=== PATIENT | male | born 1945 | race Caucasian/White ===

== ENCOUNTER 2016-04-30 16:49 | Observation (INO) ==
--- NOTE | 2016-04-30 17:45 | Emergency Department Note ---
Disposition Clinical Impression: TIA (transient ischemic attack) Qualifiers: Transient cerebral ischemia type: unspecified Qualified Code(s): G45.9 - Transient cerebral ischemic attack, unspecified Disposition: Admitted As Inpatient Referrals: Rupal Perez DO [Primary Care Provider] - Forms: ED Satisfaction Letter Neuro HPI - General Chief Complaint: ED Neuro Symptoms/Deficit Stated Complaint: "cant talk" can talk now Source: patient, family Limitations: no limitations Nursing Notes Reviewed: Yes Vital Signs Reviewed: Yes - History of Present Illness HPI Narrative: Mr. Silvestre, a 70yo male, presents from home by POV with chief complaint of difficulty speaking. History of TIA x3, intracerebral tumor surgically removed 3 yrs ago, followed by oncologist at the [facility] Patient's event was witnessed by patient's at bedside. Onset 09:00-09:30. She describes the patient stayed in the kitchen, slightly confused, severely mumbling and slurring his words such that they were incomprehensible. This self resolved after 20-25 minutes and patient is now at baseline. Per the patient, he denies confusion, remembers the event, states that he had clear thoughts [place] he wanted to say however he was having difficulty articulating his words. Patient's is very concerned she only was the best for him as the patient is downplaying his symptoms stating, "I'm just fine." At this point, the patient broke down crying. Anticoagulated on ASA 81mg PO Qdaily. PMH: Brain cancer, HTN, COPD, hx recurrent pneumonia. - Related Data Home Medications: Home Medications Medication Instructions Recorded Confirmed Albuterol Sulfate [Proair Hfa] 2 puff IH Q4H PRN 10/19/15 10/19/15 Amitriptyline [Elavil] 100 mg PO HS 10/19/15 10/19/15 Budesonide/Formoterol 160/4.5 2 puff IH BIDR 10/19/15 10/19/15 [Symbicort 160/4.5] Cholecalciferol (D-3) [Vitamin D] 5,000 unit PO DAILY 10/19/15 10/19/15 Fluticasone Propionate Nasal 1 spray NS DAILY 10/19/15 10/19/15 [Flonase] Levocetirizine Dihydrochloride 5 mg PO DAILY 10/19/15 10/19/15 [Xyzal] Losartan Potassium [Cozaar] 50 mg PO DAILY 10/19/15 10/19/15 Metoprolol [Lopressor] 25 mg PO BID 10/19/15 10/19/15 Montelukast [Singulair] 10 mg PO DAILY 10/19/15 10/19/15 NIFEdipine [Nifedipine ER] 30 mg PO DAILY 10/19/15 10/19/15 Simvastatin [Zocor] 40 mg PO HS 10/19/15 10/19/15 Temozolomide [Temodar] 300 mg PO DAILY 10/19/15 10/19/15 Previous Rx's Medication Instructions Recorded GuaiFENesin ER [Mucinex] 600 mg PO BID #12 tbbp.12hr 10/23/15 Ipratropium/Albuterol Neb [Duoneb] 3 ml IH AD #21 inhsol 10/23/15 Levofloxacin [Levaquin] 500 mg PO DAILY #3 tablet 10/23/15 Allergies/Adverse Reactions: Allergies Allergy/AdvReac Type Severity Reaction Status Date / Time atorvastatin [From Lipitor] AdvReac See Verified 10/19/15 16:34 Comments codeine AdvReac Gastrointestinal Verified 10/19/15 16:34 Upset lisinopril AdvReac Cough Verified 10/19/15 16:34 All systems ED: reviewed and negative except as stated. Constitutional: Denies: fever, chills, weakness Eyes: Denies: vision change Cardiovascular: Denies: chest pain, palpitations, dyspnea on exertion, syncope Respiratory: Denies: cough, dyspnea, wheezes Gastrointestinal: Denies: abdominal pain, nausea, vomiting, diarrhea, constipation, hematemesis, melena, hematochezia Genitourinary: Denies: dysuria Integumentary: Denies: rash, abrasion Neurological: Reports: other (aphasia). Denies: headache, weakness, numbness, paresthesias, confusion, abnormal gait Hematological/Lymphatic: Denies: easy bleeding, easy bruising Past Medical History - Past Medical History Medical history: Reports: COPD, CVA, hypertension, other Psychiatric history: Reports: no psych history - Social History Smoking Status: Former smoker Smokeless Tobacco Status: No Alcohol use: Reports: none Drug use: Reports: none Physical Exam General: Patient is alert, oriented, and in no acute distress. HEENT: No facial asymmetry. Head is normocephalic and atraumatic. PERRLA, EOMI. trachea midline. Cardiovascular: Heart regular rate and rhythm without clicks, rubs, gallops, or murmurs. No JVD. PMI nondisplaced. Respiratory: Symmetric chest rise with good respiratory effort. Bilateral breath sounds are clear without wheezing, crackles, or rhonchi. Abdomen: Bowel sounds present normoactive x-4 quadrants. Abdomen is soft, nondistended, and nontender. No organomegaly noted. Musculoskeletal: Muscle strength 5/5 and symmetric bilaterally in upper and lower extremities. DTRs 2/4 and symmetric bilaterally in upper and lower extremities. Negative finger to nose exam, negative [id number]. Neuro: Cranial nerves II through XII without deficit. Sensation light touch intact. Psych: Patient's affect is appropriate for situation. - General Limitations: no limitations General appearance: alert, in no apparent distress Course Course Narrative: Per his , he is at baseline. His speech is clear, coherent, and he is able to appropriately answer questions while carrying on a conversation. There is no facial asymmetry or neurologic deficit. Work patient up for strokelike symptoms however will not call a code stroke this time. Vital Signs Temperature 97.4 F L 04/30/16 16:53 Pulse Rate 77 04/30/16 16:53 Respiratory Rate 16 04/30/16 16:53 Blood Pressure 131/82 04/30/16 16:53 O2 Sat by Pulse Oximetry 98 04/30/16 16:53 Temperature 97.4 F L 04/30/16 16:53 Pulse Rate 73 04/30/16 17:49 Respiratory Rate 18 04/30/16 17:49 Blood Pressure 124/79 04/30/16 17:49 O2 Sat by Pulse Oximetry 95 04/30/16 17:49 Oxygen Delivery Oxygen Delivery Room Air Neuro Symptoms/Deficit - Medical Records Medical records reviewed: Yes I reviewed the patient's medical records. - Lab Data Lab results reviewed: Yes I reviewed the patient's lab results. Result diagrams: 04/30/16 17:45 04/30/16 17:45 Lab Results 04/30/16 04/30/16 04/30/16 Range/Units 16:58 17:45 17:45 WBC 5.4 (4.3-11.1) K/mcL RBC 4.08 L (4.19-5.50) M/mcL Hgb 12.3 L (12.9-16.9) g/dL Hct 37.0 L (37.5-50.1) % MCV 90.7 (83.0-100.0) fL MCH 30.1 (28.0-33.3) pg MCHC 33.2 (31.6-35.5) g/dL RDW 14.1 (11.5-14.5) % Plt Count 217 (140-400) K/mcL MPV 8.2 L (9.4-12.4) fL Immature Gran % 0.4 (0-4) % Seg Neutrophils % 71.5 % Lymphocytes % 16.8 % Monocytes % 7.4 % Eosinophils % 3.3 % Basophils % 0.6 % Neutrophils # 3.9 (1.6-8.9) K/mcL Lymphocytes # 0.9 (0.6-4.6) K/mcL Monocytes # 0.4 (0.0-1.3) K/mcL Eosinophils # 0.2 (0.0-0.6) K/mcL Basophils # 0.0 (0.0-0.2) K/mcL Sodium 137 (136-145) mEq/L Potassium 4.1 (3.5-4.5) mEq/L Chloride 104 (98-109) mEq/L Carbon Dioxide 24 (19-29) mEq/L BUN 11 (8-26) mg/dL Creatinine 1.12 (0.72-1.25) mg/dL Est GFR ( Amer) > 60 (> 60) Est GFR (Non-Af Amer) > 60 (> 60) BUN/Creatinine Ratio 10 (6-26) Glucose 91 (70-99) mg/dL POC Glucose 118 H (58-89) Calculated Osmolality 283 (280-300) Calcium 9.0 (8.6-10.8) mg/dL Troponin I (0-0.03) ng/mL 04/30/16 Range/Units 17:45 WBC (4.3-11.1) K/mcL RBC (4.19-5.50) M/mcL Hgb (12.9-16.9) g/dL Hct (37.5-50.1) % MCV (83.0-100.0) fL MCH (28.0-33.3) pg MCHC (31.6-35.5) g/dL RDW (11.5-14.5) % Plt Count (140-400) K/mcL MPV (9.4-12.4) fL Immature Gran % (0-4) % Seg Neutrophils % % Lymphocytes % % Monocytes % % Eosinophils % % Basophils % % Neutrophils # (1.6-8.9) K/mcL Lymphocytes # (0.6-4.6) K/mcL Monocytes # (0.0-1.3) K/mcL Eosinophils # (0.0-0.6) K/mcL Basophils # (0.0-0.2) K/mcL Sodium (136-145) mEq/L Potassium (3.5-4.5) mEq/L Chloride (98-109) mEq/L Carbon Dioxide (19-29) mEq/L BUN (8-26) mg/dL Creatinine (0.72-1.25) mg/dL Est GFR ( Amer) (> 60) Est GFR (Non-Af Amer) (> 60) BUN/Creatinine Ratio (6-26) Glucose (70-99) mg/dL POC Glucose (58-89) Calculated Osmolality (280-300) Calcium (8.6-10.8) mg/dL Troponin I 0.01 (0-0.03) ng/mL - EKG Data EKG attestation: Yes I reviewed and interpreted this EKG. EKG results narrative: EKG dated 04/30/16 at 17:46 shows sinus rhythm with a rate of 73. Left axis. Normal intervals. Nonspecific ST-T changes. Compared to previous dated 2015 at 14:48 showing sinus rhythm; no acute ischemic changes comparison. NIH Stroke Scale - Level of Consciousness LOC: Alert - LOC Questions LOC Questions: Answers both correctly - LOC Commands LOC Commands: Performs both correctly - Best Gaze Best Gaze: Normal - Visual Visual: No visual loss - Facial Palsy Facial Palsy: Normal - Motor Arms Motor Arm-Left: No drift for 10 seconds Motor Arm-Right: No drift for 10 seconds - Motor Legs Motor Leg-Left: No drift for 5 seconds Motor Leg-Right: No drift for 5 seconds - Limb Ataxia Limb Ataxia: Absent of affected limb too weak to perform exam - Sensory Sensory: Normal - Best Language Best Language: No aphasia - Dysarthria Dysarthria: Normal - Extinction and Inattention Extinction and Inattention: Normal - NIHSS Total Score NIHSS Total Score: 0 TPA Checklist - LKW: 3-4.5 hrs Add. Contraindications Patient/family understanding: The patient/family members have been counseled and understood the risk, benefit , and alternatives of treatment. Attestation Statement - Attestation Attestation: I examined this patient and my medical decision-making was reviewed with the BUYER ASSISTANT/PA/Advanced Practice Nurse/Resident Physician. I agree with the documented findings, disposition and treatment plan as described except to the extent set forth below. Patient to the emergency department with a chief complaint of difficulty talking. Patient states he was eating some chicken and is having trouble finding his words. His states that his face was drooping and he was drooling. She was concerned he was having a stroke because he could not find his words. This episode resolved prior to his arrival here. On examination here is awake alert and appropriate. His cranial nerves are intact. He is talking normally per his . His NIH scale was 0. Plan. Stroke workup and observation. The patient and is completely resolved. No stroke alert was called secondary to this.
[2016-04-30 18:13] LABS: Basophils % 0.6 %; Eosinophils % 3.3 %; Hemoglobin 12.3 g/dL (12.9-16.9); Immature Granulocytes % 0.4 % (0-4); Lymphocytes % 16.8 %; Mean Corpuscular HGB Conc 33.2 g/dL (31.6-35.5); Mean Corpuscular Hemoglobin 30.1 pg (28.0-33.3); Mean Corpuscular Volume 90.7 fL (83.0-100.0); Mean Platelet Volume 8.2 fL (9.4-12.4); Monocytes % 7.4 %; Platelet Count 217 K/mcL (140-400); Red Blood Count 4.08 M/mcL (4.19-5.50); Red Cell Distribution Width 14.1 % (11.5-14.5); Segmented Neutrophils % 71.5 %
[2016-04-30 18:14] LABS: Eosinophils # 0.2 K/mcL (0.0-0.6); Lymphocytes # 0.9 K/mcL (0.6-4.6); Monocytes # 0.4 K/mcL (0.0-1.3); Neutrophils # 3.9 K/mcL (1.6-8.9)
[2016-04-30 18:25] LABS: BUN/Creatinine Ratio 10 (6-26); Blood Urea Nitrogen 11 mg/dL (8-26); Carbon Dioxide 24 mEq/L (19-29); Chloride 104 mEq/L (98-109); Glucose 91 mg/dL (70-99); Osmolality,Calculated 283 (280-300); Potassium 4.1 mEq/L (3.5-4.5); Sodium 137 mEq/L (136-145); eGFR For African Americans > 60 (> 60); eGFR For Non-African Americans > 60 (> 60)
[2016-04-30 18:43] LABS: INR 1.1; Prothrombin Time 11.9 Seconds (9.4-12.1)
[2016-04-30 18:46] LABS: Activated Partial Thrombo Time 30.6 Seconds (26.0-36.0)
[2016-04-30] MEDS ORDERED: Naloxone 0.4 MG/ML INJ IVP PRN (20:20)
[2016-04-30] MEDS ORDERED: Ondansetron 4 MG/2 ML VIAL IVP PRN (20:25)
[2016-04-30] MEDS ORDERED: Acetaminophen 325 MG TABLET PO PRN (20:25)
--- NOTE | 2016-04-30 20:43 | Internal Med History&Physical ---
Date of Encounter: 04/30/16 Time of Encounter: 19:40 Assessment and Plan (1) TIA (transient ischemic attack) Current visit: Yes Status: Resolved 1. Symptoms resolved upon presentation. 2. Initiate stroke work-up. 3. Will check MRI brain, ECHO, carotid Dopplers. 4. Neurochecks per protocol. 5. PT/OT/Speech consults. 6. Consult Neurology -- notified. 7. Continue Zocor and daily aspirin. Qualifiers: Transient cerebral ischemia type: other Qualified Code(s): G45.8 - Other transient cerebral ischemic attacks and related syndromes (2) HTN (hypertension) Current visit: No Status: Chronic 1. Monitor BP. 2. Continue Lopressor. 3. Adjust medications as appropriate. Qualifiers: Hypertension type: essential hypertension Qualified Code(s): I10 - Essential (primary) hypertension (3) History of brain cancer Current visit: No Status: Chronic 1. Outpatient follow up with [facility] neurology. 2. Discussed with family and patient. I recommend they obtain medical records after discharge and forward them to Patient's primary neurologist at [facility]. (4) DVT prophylaxis Current visit: No Status: Acute 1. Heparin SQ. Internal Medicine - H&P: HPI Chief complaint: facial droop and difficulty speakin Admitted From: Emergency Dept Plans for Post Hospital Care: Home History of present illness: Mr. Silvestre is a 70 year old male [facility] of left-sided facial droop and expressive aphasia. Symptoms started earlier this afternoon and he was reluctant/resistant to come to the ER. His family was able to finally coerce him to come to the ER. Upon arrival to the ER , patient had initial workup for stroke which was negative. Furthermore, his symptoms completely resolved upon arrival to the ER. Nonetheless, given his symptom presentation, he was admitted to hospitalist service. Upon my assessment of the patient to the ER, patient is talking easily and without difficulty. He exhibits no facial droop and I appreciate no focal deficits. His and family are present and confirm that he is back to baseline now. According to patient and family, he reportedly has had 3 TIAs in the last few years. However, according to his , his TIA's all presented after his brain surgery 3 years ago. He underwent neurosurgery for a brain tumor and he follows with neurology at [facility]. Since his brain surgery, he has also undergone chemotherapy and radiation to his brain. Cardiovascular and neurovascular risk factors include hypertension, hyperlipidemia, and known coronary disease. He is not diabetic and he does not smoke. He does have some COPD, which he attributes to occupational exposure through the and [employer] as well. Past Med Surg Social Fam HX - Past Medical History Attestation: Yes The following information was validated with the patient. Source: patient, old records reviewed, obtained from family Medical history: COPD, CVA, hypertension, other (brain cancer) Psychiatric history: no psych history - Past Surgical History Surgical History: angioplasty/stent, other (neurosurgery) - Social History Smoking Status: Former smoker Smokeless Tobacco Status: No Alcohol use: none Drug use: none Occupational status: disabled () Current living situation: Home, With Family Activity Level: Independent ambulation Recent Out of Country Travel Within the Last 8 Weeks: No - Family History Brother Living Status: Hx Family Cardiac Disorders: Yes ([place]) Hx Family Neurologic Disorders: No Internal Medicine - H&P: Meds Albuterol Sulfate [Proair Hfa] 2 puff IH Q4H PRN 10/19/15 [History] Amitriptyline [Elavil] 100 mg PO HS 10/19/15 [History] Budesonide/Formoterol 160/4.5 [Symbicort 160/4.5] 2 puff IH BIDR 10/19/15 [ History] Cholecalciferol (D-3) [Vitamin D] 5,000 unit PO DAILY 10/19/15 [History] Fluticasone Propionate Nasal [Flonase] 1 spray NS DAILY 10/19/15 [History] Levocetirizine Dihydrochloride [Xyzal] 5 mg PO DAILY 10/19/15 [History] Losartan Potassium [Cozaar] 50 mg PO DAILY 10/19/15 [History] Metoprolol [Lopressor] 25 mg PO BID 10/19/15 [History] Montelukast [Singulair] 10 mg PO DAILY 10/19/15 [History] NIFEdipine [Nifedipine ER] 30 mg PO DAILY 10/19/15 [History] Simvastatin [Zocor] 40 mg PO HS 10/19/15 [History] Temozolomide [Temodar] 300 mg PO DAILY 10/19/15 [History] Docusate [Colace] 100 mg PO DAILY PRN 04/30/16 [History] Allergies atorvastatin [From Lipitor] Adverse Reaction (Verified 10/19/15 16:34) See Comments patient states it makes him feel bad codeine Adverse Reaction (Verified 10/19/15 16:34) Gastrointestinal Upset lisinopril Adverse Reaction (Verified 10/19/15 16:34) Cough - Constitutional Constitutional: no chills, no fever(s) - EENT Eyes: no blurry vision, no change in vision, no diplopia, no loss of vision Ears: no ear pain, no tinnitus Nose, mouth and throat: no nasal congestion, no sinus pain, no sinus pressure, no sore throat - Cardiovascular Cardiovascular ROS IM: no chest pain, no dyspnea, no dyspnea on exertion, no edema, no irregular heart rhythm, no lightheadedness, no palpitations, no paroxysmal nocturnal dyspnea - Respiratory Respiratory: cough (chronic), wheezing (chronic), no dyspnea, no hemoptysis, no dyspnea on exertion, no chest congestion, no excessive phlegm production, no pain with cough - Gastrointestinal Gastrointestinal: no abdominal pain, no diarrhea, no hematemesis, no hematochezia, no melena, no nausea, no vomiting - Genitourinary Genitourinary ROS male: no dysuria, no flank pain, no hematuria - Musculoskeletal Musculoskeletal ROS IM: no back pain, no joint swelling - Integumentary Integumentary IM: no rash, no unusual bruising, no jaundice - Neurological Neurological ROS: abnormal speech (expressive aphasia -- resolved), focal weakness (Left facial droop -- resolved), no dizziness, no frequent falls - Psychiatric Psychiatric: no anxiety, no depression - Endocrine Endocrine IM: no cold intolerance, no heat intolerance - Hematologic/Lymphatic Hematologic/Lymphatic: no easy bruising, no lymphadenopathy - Allergic/Immunologic Allergic/Immunologic: wheezing, no GI upset with certain foods - Constitutional Vitals: Temp Pulse Resp BP Pulse Ox 97.4 F L 74 18 125/77 95 04/30/16 16:53 04/30/16 19:30 04/30/16 20:01 04/30/16 20:01 04/30/16 19:30 General appearance: Present: cooperative, A&O X 3, pleasant, no acute distress, answers questions appropriately - Head Head exam: Present: atraumatic, normal inspection - Expanded Head Exam Head exam expanded: Absent: abrasion, contusion, general tenderness - Eye Eye exam: Present: EOMI, normal appearance, PERRL. Absent: scleral icterus Pupils: Present: normal accommodation - ENT ENT exam: Present: mucous membranes moist, normal exam, normal oropharynx - Neck Neck exam general surgery: Present: full ROM, normal inspection, supple. Absent : lymphadenopathy, nuchal rigidity, thyromegaly - Respiratory Respiratory exam: Present: CTAB (other than rare scattered wheezes), wheezes. Absent: accessory muscle use, chest wall tenderness, rales, respiratory distress , rhonchi - Cardiovascular Cardiovascular exam: Present: RRR, +S1, +S2. Absent: diastolic murmur, irregular rhythm, JVD, systolic murmur - GI/Abdominal GI/Abdominal exam: Present: normal bowel sounds, soft. Absent: guarding, hepatomegaly, mass, rebound, splenomegaly, tenderness - Extremities Exam Extremities exam: Present: full ROM, normal capillary refill, radial pulses palpable and symetrical. Absent: calf tenderness, joint swelling, tenderness - Back Exam Back exam: Present: normal inspection. Absent: CVA tenderness (L), CVA tenderness (R) - Neurological Exam Neurological exam: Present: CN II-XII intact, no focal deficits, strengths equal and symetr throughout. Absent: motor sensory deficit Additional comments: speech clear, comprehensible, normal; no facial droop appreciated - Psychiatric Psychiatric exam: Present: normal affect, normal mood - Skin Skin exam: Present: dry, warm. Absent: rash Internal Med - H&P Results - Labs CBC & Chem 7: 04/30/16 17:45 04/30/16 17:45 - EKG Data -: EKG Interpreted by Myself EKG shows normal: sinus rhythm - EKG Data Prior EKG available for review: yes When compared to previous EKG: there is no significant change EKG comments: 04/30/16 20:51 Sinus rhythm; questionable q-waves inferiorly suggesting possible old Inferior [place] -- unchanged - Diagnostic Studies Chest x-ray Status: image reviewed by me (negative; lungs clear)
[2016-04-30] MEDS: *HR* Heparin 5,000 UNIT/ML VIAL SQ SCH (22:18)
[2016-04-30] MEDS: Budesonide/Formoterol 160/4.5 MDI IH SCH (23:17)
[2016-05-01 04:02] LABS: Basophils % 0.6 %; Eosinophils # 0.2 K/mcL (0.0-0.6); Eosinophils % 3.5 %; Hematocrit 35.5 % (37.5-50.1); Immature Granulocytes % 0.2 % (0-4); Lymphocytes # 1.1 K/mcL (0.6-4.6); Lymphocytes % 21.2 %; Mean Corpuscular HGB Conc 33.8 g/dL (31.6-35.5); Mean Corpuscular Hemoglobin 30.7 pg (28.0-33.3); Mean Corpuscular Volume 90.8 fL (83.0-100.0); Mean Platelet Volume 8.2 fL (9.4-12.4); Monocytes # 0.4 K/mcL (0.0-1.3); Monocytes % 8.3 %; Neutrophils # 3.4 K/mcL (1.6-8.9); Platelet Count 191 K/mcL (140-400); Red Blood Count 3.91 M/mcL (4.19-5.50); Red Cell Distribution Width 13.9 % (11.5-14.5); Segmented Neutrophils % 66.2 %
[2016-05-01 04:39] LABS: Alanine Aminotransferase 14 Units/L (0-55); Albumin 3.2 g/dL (3.5-5.0); Albumin/Globulin Ratio 1.1 (1.1-2.2); Alkaline Phosphatase 62 Units/L (38-126); Aspartate Amino Transferase 12 Units/L (5-34); BUN/Creatinine Ratio 15 (6-26); Bilirubin,Total 0.5 mg/dL (0.2-1.2); Blood Urea Nitrogen 13 mg/dL (8-26); Carbon Dioxide 24 mEq/L (19-29); Chloride 105 mEq/L (98-109); Cholesterol 135 mg/dL (< 200); Glucose 104 mg/dL (70-99); HDL Cholesterol 27 mg/dL (40-59); LDL Cholesterol,Calculated 84 mg/dL (0-99); Osmolality,Calculated 282 (280-300); Potassium 4.1 mEq/L (3.5-4.5); Sodium 136 mEq/L (136-145); Total Protein 6.2 g/dL (6.0-8.3); Triglycerides 120 mg/dL (< 150); eGFR For African Americans > 60 (> 60); eGFR For Non-African Americans > 60 (> 60)
[2016-05-01] MEDS: *HR* Heparin 5,000 UNIT/ML VIAL SQ SCH ×2 (06:09→17:40)
[2016-05-01] MEDS: Budesonide/Formoterol 160/4.5 MDI IH SCH ×2 (07:52→20:28)
--- NOTE | 2016-05-01 08:45 | Neurology - Consult Note ---
Date of Encounter: 05/01/16 Time of Encounter: 08:41 Assessment and Plan (1) TIA (transient ischemic attack) Current Visit: Yes Status: Resolved Patient with previous TIAs, history of brain tumor, s/p craniotomy with left frontal encephalomalacia, HTN, DM COPD who developed another episode of TIA symptoms characterized by speech difficulty and confusion. MRI of brain showed no acute infarct but chronic focal encephalomalacia and post surgical changes at the right frontal region. Beside diagnosis of TIA, another major concerns would localization related partial symptomatic seizure related to history of brain tumor and tumor resection. Will complete echo, carotid artery duplex and also EEG. 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 I would start him on Keppra 500mg bid. Obtain routine EEG. He can be followed in neurology clinic if he wishes. Qualifiers: Transient cerebral ischemia type: other Qualified Code(s): G45.8 - Other transient cerebral ischemic attacks and related syndromes History of Present Illness Chief complaint: speech difficulty, confusion HPI: Mr. Silvestre is a 70 year old male with PMH significant for brain tumor, s/p tumor resection 3 year ago, COPD, HTN, DM, COPD history of recurrent TIAs who presented with an episode of speech difficulty and confusion. Lasting about 20 minutes. Patient is interviewed alone and he could not provide detailed history regarding the episode. He says that he has had surgery 3 years ago and has been having headaches to the craniotomy site. Repeat MRI of brain showed post surgical changes at the left frontal region. No evidence of recurrent mass growth. No acute infarct. Patient current denies any significant discomforts. Mental status back to baseline. Past Med Surg Social Fam HX - Past Medical History Medical history: asthma, COPD, CVA, hypertension, other Psychiatric history: no psych history - Past Surgical History Surgical History: angioplasty/stent, other - Social History Smoking Status: Former smoker Smokeless Tobacco Status: No Alcohol use: none Drug use: none - Family History Father Hx Family Cancer: Yes (bone) Brother Living Status: Hx Family Cardiac Disorders: Yes ([place]) Hx Family Neurologic Disorders: No Medications and Allergies Albuterol Sulfate [Proair Hfa] 2 puff IH Q4H PRN 10/19/15 [History] Amitriptyline [Elavil] 100 mg PO HS 10/19/15 [History] Budesonide/Formoterol 160/4.5 [Symbicort 160/4.5] 2 puff IH BIDR 10/19/15 [ History] Cholecalciferol (D-3) [Vitamin D] 5,000 unit PO DAILY 10/19/15 [History] Fluticasone Propionate Nasal [Flonase] 1 spray NS DAILY 10/19/15 [History] Levocetirizine Dihydrochloride [Xyzal] 5 mg PO DAILY 10/19/15 [History] Losartan Potassium [Cozaar] 50 mg PO DAILY 10/19/15 [History] Metoprolol [Lopressor] 25 mg PO BID 10/19/15 [History] Montelukast [Singulair] 10 mg PO DAILY 10/19/15 [History] NIFEdipine [Nifedipine ER] 30 mg PO DAILY 10/19/15 [History] Simvastatin [Zocor] 40 mg PO HS 10/19/15 [History] Temozolomide [Temodar] 300 mg PO DAILY 10/19/15 [History] Docusate [Colace] 100 mg PO DAILY PRN 04/30/16 [History] Allergies atorvastatin [From Lipitor] Adverse Reaction (Verified 10/19/15 16:34) See Comments patient states it makes him feel bad codeine Adverse Reaction (Verified 10/19/15 16:34) Gastrointestinal Upset lisinopril Adverse Reaction (Verified 10/19/15 16:34) Cough All Systems: A 10-system review of systems was performed and is negative for pertinent findings except as documented above in the HPI. Physical Examination - Vital Signs Vital Signs: Initial Vital Signs Temp Pulse Resp BP Pulse Ox 97.4 F L 77 16 131/82 98 04/30/16 16:53 04/30/16 16:53 04/30/16 16:53 04/30/16 16:53 04/30/16 16:53 Results - Laboratory Findings CBC and BMP: 05/01/16 03:39 05/01/16 03:39 Abnormal lab findings: Abnormal lab results RBC 3.91 M/mcL (4.19-5.50) L 05/01/16 03:39 Hgb 12.0 g/dL (12.9-16.9) L 05/01/16 03:39 Hct 35.5 % (37.5-50.1) L 05/01/16 03:39 MPV 8.2 fL (9.4-12.4) L 05/01/16 03:39 Glucose 104 mg/dL (70-99) H 05/01/16 03:39 POC Glucose 102 (58-89) H 05/01/16 07:07 Albumin 3.2 g/dL (3.5-5.0) L 05/01/16 03:39 HDL Cholesterol 27 mg/dL (40-59) L 05/01/16 03:39 Cholesterol/HDL Ratio 5.0 (0-4.9) H 05/01/16 03:39 Consult Discharge Plan - Plan Referrals: Rupal Perez DO [Primary Care Provider] -
[2016-05-01] MEDS: (Levocetirizine Dihydrochloride [Xyzal] 5 MG) PO SCH (09:25)
[2016-05-01] MEDS: TEMOZOLOMIDE PO SCH (09:25)
[2016-05-01] MEDS: Cholecalciferol (D-3) 1,000 UNIT TABLET PO SCH (09:25)
[2016-05-01] MEDS: Aspirin 81 MG TAB.CHEW PO SCH (09:25)
[2016-05-01] MEDS: Fluticasone Propionate Nasal 50 MCG/SPRAY BOTTLE NS SCH (09:26)
--- NOTE | 2016-05-01 09:53 | ECHO - Doppler Report ---
Echo with Saline Contrast Name: Иван Silvestre Date of Study: 05/01/2016 Date: 1945 Ht: 69.0 in Medical Record#: [id number] Age: 70 Wt: 189.0 lb Gender: Male BSA: 2.02 Order #: [id number] Location: [facility] Room #: 3B14 Reading Physician: Can James MD, [facility] Doctor Of Chiropractic: Tawanna Garcia Ordering Physician: Jayme Saba MD Primary Physician: Rupal Perez DO Indications: Transient Ischemic Attack Impressions: Normal left ventricular size and systolic function, LVEF 55-60%. Normal right ventricular size and function. Mild aortic regurgitation. No evidence of pulmonary hypertension. No evidence of intracardiac shunting with agitated saline contrast. There is a possible large atherosclerotic plaque noted in the ascending aorta, although artifact cannot be excluded. Recommend dedicated imaging of the thoracic aorta with CTA to further evaluate. Primary hospitalist has been paged to discuss the abnormal results. Left Ventricular Wall Motion: Rest Echo Findings All wall segments showed normal motion. Findings: Study Quality * Technically adequate exam. ECG Findings * Normal sinus rhythm. Left Ventricle * Normal left ventricular size and systolic function, LVEF 55-60%. * Normal LV wall thickness. * Indeterminate diastolic function. Right Ventricle * Normal right ventricular size and function. Left Atrium * Normal left atrial size. Right Atrium * Normal right atrial size. Interatrial Septum * No evidence of intracardiac shunting with agitated saline contrast. Aorta * Normally sized aortic root. * There is a possible large atherosclerotic plaque noted in the ascending aorta, although artifact cannot be excluded. Recommend dedicated imaging of the thoracic aorta with CTA to further evaluate. Pericardium * There is no pericardial effusion present. IVC * The IVC is not dilated. Aortic Valve * Trileaflet aortic valve. * Mildly sclerotic aortic valve leaflets. * No aortic stenosis. * Mild aortic regurgitation. Mitral Valve * Normal mitral valve structure. * Mild mitral annular calcification * No mitral stenosis. * Trace mitral regurgitation. Tricuspid Valve * Normal tricuspid valve structure. * No tricuspid stenosis. * Trace tricuspid regurgitation. * No evidence of pulmonary hypertension. Pulmonic Valve * Normal pulmonic valve structure. * No pulmonic stenosis. * Trace pulmonic regurgitation. History Hypertension Hypercholesteremia History of CAD/PTCA Contrast: Agitated saline 20 ml. Measurements: BP: 109/ 60 2D Normal Values RVIDd: 3.70 cm IVSd: 1.00 cm 0.6 - 1.0 cm LVIDd: 4.10 cm 3.7 - 5.6 cm LVPWd: .90 cm 0.6 - 1.1 cm LVIDs: 2.10 cm 1.5 - 3.6 cm AO: 2.90 cm < 4.0 cm LA volume: 65 Mitral Valve Peak E:.57 m/sec Peak A:.65 m/sec E/A Ratio:0.9 Tricuspid Valve TV Regurg Peak Grad: 21.00mmHg TV Regurg Peak Chsae: 2.29m/sec Updated by Can James MD, [facility] on 05/01/2016 9:46:35 AM electronically signed on 05/01/2016 9:47:46 AM with status of Final Wall Motion Avery: 1=Normal, 2=Hypokinesis, 3=Akinesis, 4=Dyskinesis, 5=Aneurysmal, 6=Hyperkinetic, X=Not Visualized (Blank)=Missing
--- NOTE | 2016-05-01 10:21 | Internal Med Progress Note ---
Date of Encounter: 05/01/16 Time of Encounter: 10:15 - Assessment and plan (1) TIA (transient ischemic attack) Current Visit: Yes Status: Resolved Assessment and plan: Patient alert and oriented 3. He has very mild slurring of his speech but no tongue deviation or facial asymmetry. No focal neurological weaknesses noted. Chest x-ray unremarkable. Head CT and brain MRI negative for acute processes. Neurology on board who recommend addition of the EEG and possible starting the patient on Keppra and follow up outpatient. Echocardiogram unremarkable with a possible large atherosclerotic plaque in the ascending aorta, CTA pending. ITS Impressions Chest X-Ray 04/30/16 16:56 IMPRESSION: Mild dependent left basilar atelectasis. Otherwise unremarkable chest. D/ / Jerome Hammond MD / Jerome Hammond MD Interpreting Provider: Jerome Hammond MD Head CT 04/30/16 16:56 IMPRESSION: No hemorrhage or mass Periventricular, and frontal parietal white matter disease, left greater than right, with post craniotomy changes on the left. D/ / Walt Alicia MD / Walt Alicia MD Interpreting Provider: Walt Alicia MD Brain MRI 04/30/16 20:29 IMPRESSION: No acute intracranial process, specifically no acute ischemia. 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 Expected post treatment changes. Moderate chronic small vessel ischemic disease. D/ / Chance Brooks MD / Chance Brooks MD Interpreting Provider: Chance Brooks MD Echocardiogram impressions: Normal left ventricular size and systolic function, LVEF 55-60%. Normal record sugar size and function. Mild aortic regurgitation. No evidence of pulmonary hypertension. Evidence of intracardiac shunting with agitated saline contrast. There is a possible large atherosclerotic plaque noted in the ascending aorta, although artifact cannot be excluded. Recommend dedicated imaging of the thoracic aorta with CTA to further evaluate. Primary hospitalist has been notified. Qualifiers: Transient cerebral ischemia type: other Qualified Code(s): G45.8 - Other transient cerebral ischemic attacks and related syndromes (2) Abnormal echocardiogram Current Visit: Yes Status: Acute (3) DVT prophylaxis Current Visit: No Status: Acute Assessment and plan: Subcutaneous heparin (4) COPD (chronic obstructive pulmonary disease) Current Visit: No Status: Chronic Assessment and plan: No acute exacerbation. Patient denies shortness of breath. Qualifiers: COPD type: chronic bronchitis Chronic bronchitis type: unspecified Qualified Code(s): J42 - Unspecified chronic bronchitis (5) HTN (hypertension) Current Visit: No Status: Chronic Assessment and plan: Controlled, we will continue to trend and adjust medications as indicated. Qualifiers: Hypertension type: essential hypertension Qualified Code(s): I10 - Essential (primary) hypertension (6) History of brain cancer Current Visit: No Status: Chronic Assessment and plan: No signs of recurrence on imaging, follow-up outpatient with [facility]. - Subjective Interval history: Patient seen and examined. On examination, patient resting in bed. Patient alert and oriented 3 and denies pain at this time. He states he is tired and he states that he was already tired before he came in as he states he had the flu for about one month. He denies any weakness. - Constitutional Vitals: Temp Pulse Resp BP Pulse Ox 97.6 F 64 16 129/81 93 L 05/01/16 07:08 05/01/16 07:08 05/01/16 07:08 05/01/16 07:08 05/01/16 07:08 General appearance: Present: cooperative, A&O X 3, pleasant, no acute distress, answers questions appropriately - Head Head exam: Present: atraumatic, normocephalic - Eye Eye exam: Present: PERRL, conjuntiva pink, sclera anicteric Pupils: Present: PERRL - Neck Neck exam general surgery: Present: supple, trachea midline. Absent: lymphadenopathy - Respiratory Respiratory exam: Present: CTAB. Absent: accessory muscle use, rales, respiratory distress, rhonchi, wheezes - Cardiovascular Cardiovascular exam: Present: RRR, +S1, +S2. Absent: diastolic murmur, gallop, rubs, systolic murmur - GI/Abdominal GI/Abdominal exam: Present: normal bowel sounds, soft, no peritoneal signs. Absent: distended, tenderness - Extremities Exam Extremities exam: Present: warm, radial pulses palpable and symetrical. Absent : calf tenderness, cyanotic, pedal edema - Neurological Exam Neurological exam: Present: alert, CN II-XII intact, oriented X3, no focal deficits, strengths equal and symetr throughout. Absent: pronater drift, facial droop, speech deficit - Skin Skin exam: Present: dry, intact, normal color, warm Internal Medicine: Result - Labs CBC & Chem 7: 05/01/16 03:39 05/01/16 03:39 Labs: Short CBC 05/01/16 Range/Units 03:39 WBC 5.2 (4.3-11.1) K/mcL Hgb 12.0 L (12.9-16.9) g/dL Hct 35.5 L (37.5-50.1) % Plt Count 191 (140-400) K/mcL Neutrophils # 3.4 (1.6-8.9) K/mcL BMP 05/01/16 03:39 Sodium 136 Potassium 4.1 Chloride 105 Carbon Dioxide 24 BUN 13 Creatinine 0.89 Glucose 104 H Calcium 9.0 Liver Function 05/01/16 Range/Units 03:39 Total Bilirubin 0.5 (0.2-1.2) mg/dL AST 12 (5-34) Units/L ALT 14 (0-55) Units/L Alkaline Phosphatase 62 (38-126) Units/L Albumin 3.2 L (3.5-5.0) g/dL - ABG Interpretation ABG results: PT/INR, D-dimer PT 11.9 Seconds (9.4-12.1) 04/30/16 18:30 - Impressions Impressions Brain MRI 04/30/16 20:29 IMPRESSION: No acute intracranial process, specifically no acute ischemia. 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 Expected post treatment changes. Moderate chronic small vessel ischemic disease. D/ / Chance Brooks MD / Chance Brooks MD Interpreting Provider: Chance Brooks MD Consult Discharge Plan - Plan Referrals: Rupal Perez DO [Primary Care Provider] -
--- NOTE | 2016-05-01 16:05 | EEG/EMG/Oth Biometrics Report ---
EEG Procedure Report Date of procedure: 05/01/16 Procedure Note: Medications: no anticonvulsants listed. This EEG was acquired with standard international 10-20 electrode placement system with EKG recording. The background EEG activity was characterized by presence of posterior dominant alpha rhythm with best frequency up to 9Hz. The background activity was reactive to eye openings. Sleep stages were characterized by presence of drop off of alpha rhythm, vertex wave, K-complexes and sleep spindles. There are no electrographic seizures identified during the study. However, there are intermittent sharp slow waves noted at the left frontal temporal region as well as theta, delta slowing at the same region. Photic stimulation produced no significant abnormality. HV not performed. Impression: Abnormal EEG due to intermittent left frontotemporal slowing and sharp/slow waves. Clinical correlation: This EEG is consistent with focal neuronal dysfunction at the left [id number] region. This pattern can be seen in patients with focal structure abnormalities or less likely as an inter-ictal expression of a partial seizure disorder. Clinical correlation advised.
--- NOTE | 2016-05-01 16:16 | Electrocardiograph Report ---
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
[2016-05-01] MEDS: levETIRAcetam 250 MG TABLET PO SCH (17:40)
--- NOTE | 2016-05-01 18:19 | Carotid Imaging Report ---
Carotid Duplex Patient Name:Иван Silvestre Order Number:[id number] Procedure Date:05/01/2016 Date:8Age:70 yrs Gender:Male Location:[facility] Room #: 3B14 [facility] Laboratory Technician:Tawanna Garcia Referring MD:Jayme Saba MD vaccinator:Rupal Perez DO Reading MD:Chris Underwood MD Risk Factors Yes/No Hx of TIA Yes Hypertension Yes Hypercholesterolemia Yes Impressions: The right internal carotid artery has a 40-59% stenosis. The left carotid artery is normal throughout. Recommendations: Risk factor reduction. Follow-up carotid duplex in 1 year. After imaging the patient returned to their room. Findings Carotid Duplex: Right: The right proximal common carotid artery has a PSV of 76 cm/s and a EDV of 15 cm/s. The right mid common carotid artery has a PSV of 86 cm/s and a EDV of 21 cm/s. The right distal common carotid artery has a PSV of 63 cm/s and a EDV of 10 cm/s. There is nonstenotic plaque in the right bifurcation with a PSV of 99 cm/s and a EDV of 19 cm/s. There is smooth heterogeneous plaque. There is 40-59% stenosis in the right proximal internal carotid artery with a PSV of 125 cm/s and a EDV of 36 cm/s. There is smooth heterogeneous plaque. The right mid internal carotid artery has a PSV of 81 cm/s and a EDV of 30 cm/s. The right distal internal carotid artery has a PSV of 81 cm/s and a EDV of 30 cm/s. There is nonstenotic plaque in the right eca with a PSV of 138 cm/s and a EDV of 18 cm/s. There is smooth heterogeneous plaque. The right vertebral artery has a PSV of 21 cm/s and a EDV of 7 cm/s. Left: The left proximal common carotid artery has a PSV of 106 cm/s and a EDV of 22 cm/s. The left mid common carotid artery has a PSV of 78 cm/s and a EDV of 15 cm/s. The left distal common carotid artery has a PSV of 58 cm/s and a EDV of 14 cm/s. The left bifurcation has a PSV of 70 cm/s and a EDV of 16 cm/s. The left proximal internal carotid artery has a PSV of 81 cm/s and a EDV of 27 cm/s. The left mid internal carotid artery has a PSV of 79 cm/s and a EDV of 20 cm/s. The left distal internal carotid artery has a PSV of 74 cm/s and a EDV of 23 cm/s. The left eca has a PSV of 92 cm/s and a EDV of 18 cm/s. The left vertebral artery has a PSV of 61 cm/s and a EDV of 18 cm/s. Carotid Results Right PSV EDV Assessment Proximal CCA 76 15 Mid CCA 86 21 Distal CCA 63 10 Bifurcation 99 19 Proximal ICA 125 36 Mid ICA 81 30 Distal ICA 81 30 ECA 138 18 Vertebral Artery 21 7 Left PSV EDV Assessment Proximal CCA 106 22 Mid CCA 78 15 Distal CCA 58 14 Bifurcation 70 16 Proximal ICA 81 27 Mid ICA 79 20 Distal ICA 74 23 ECA 92 18 Vertebral Artery 61 18 Ratio's Right ICA/CCA Ratio: 1.50 ICA/CCA Values: 125/86 Left ICA/CCA Ratio: 1.03 ICA/CCA Values: 81/78 Updated by Chris Underwood MD on 05/01/2016 6:12:36 PM electronically signed on 05/01/2016 6:12:46 PM with status of Final
[2016-05-02] MEDS: levETIRAcetam 250 MG TABLET PO SCH (06:32)
[2016-05-02] MEDS: *HR* Heparin 5,000 UNIT/ML VIAL SQ SCH (06:32)
[2016-05-02 07:59] VITALS: BP 121/79
[2016-05-02] MEDS: Budesonide/Formoterol 160/4.5 MDI IH SCH (07:59)
[2016-05-02] MEDS: Cholecalciferol (D-3) 1,000 UNIT TABLET PO SCH (08:16)
[2016-05-02] MEDS: Fluticasone Propionate Nasal 50 MCG/SPRAY BOTTLE NS SCH (08:16)
[2016-05-02] MEDS: Aspirin 81 MG TAB.CHEW PO SCH (08:16)
[2016-05-02] MEDS: TEMOZOLOMIDE PO SCH (08:17)
[2016-05-02] MEDS: (Levocetirizine Dihydrochloride [Xyzal] 5 MG) PO SCH (08:17)
--- NOTE | 2016-05-02 10:40 | Discharge Summary ---
Date of Encounter: 05/02/16 Time of Encounter: 08:15 - Discharge Diagnosis (1) TIA (transient ischemic attack) Priority: Primary Status: Resolved Qualifiers: Transient cerebral ischemia type: other Qualified Code(s): G45.8 - Other transient cerebral ischemic attacks and related syndromes (2) HTN (hypertension) Priority: Secondary Status: Chronic Qualifiers: Hypertension type: essential hypertension Qualified Code(s): I10 - Essential (primary) hypertension (3) History of brain cancer Priority: Secondary Status: Chronic (4) DVT prophylaxis Priority: Secondary Status: Acute - Discharge Medications Prescriptions: LevETIRAcetam [Keppra] 500 mg PO Q12HR #60 tablet Aspirin 81 mg PO DAILY #30 tab.chew Home Medications: Albuterol Sulfate [Proair Hfa] 2 puff IH Q4H PRN 10/19/15 [History] Amitriptyline [Elavil] 100 mg PO HS 10/19/15 [History] Budesonide/Formoterol 160/4.5 [Symbicort 160/4.5] 2 puff IH BIDR 10/19/15 [ History] Cholecalciferol (D-3) [Vitamin D] 5,000 unit PO DAILY 10/19/15 [History] Fluticasone Propionate Nasal [Flonase] 1 spray NS DAILY 10/19/15 [History] Levocetirizine Dihydrochloride [Xyzal] 5 mg PO DAILY 10/19/15 [History] Losartan Potassium [Cozaar] 50 mg PO DAILY 10/19/15 [History] Metoprolol [Lopressor] 25 mg PO BID 10/19/15 [History] Montelukast [Singulair] 10 mg PO DAILY 10/19/15 [History] NIFEdipine [Nifedipine ER] 30 mg PO DAILY 10/19/15 [History] Simvastatin [Zocor] 40 mg PO HS 10/19/15 [History] Temozolomide [Temodar] 300 mg PO DAILY 10/19/15 [History] Docusate [Colace] 100 mg PO DAILY PRN 04/30/16 [History] Aspirin 81 mg PO DAILY #30 tab.chew 05/02/16 [Rx] LevETIRAcetam [Keppra] 500 mg PO Q12HR #60 tablet 05/02/16 [Rx] Allergies/Adverse Reactions: Allergies atorvastatin [From Lipitor] Adverse Reaction (Verified 10/19/15 16:34) See Comments patient states it makes him feel bad codeine Adverse Reaction (Verified 10/19/15 16:34) Gastrointestinal Upset lisinopril Adverse Reaction (Verified 10/19/15 16:34) Cough Procedures/tests Complete & Pending: Procedures Performed prior 72 hours Category Date Time Status CTA chest [CT angio chest] [CT] Stat Cat Scan 05/01/16 11:00 Draft MR head/brain wo/w con [MR] Routine MRI 04/30/16 20:29 Completed ECG 12 lead ECG [ECG] AM 0600 Y 05/01/16 06:00 Completed EV carotid duplex imaging BI Routine Y 05/01/16 20:28 Completed EV echocardiogram Routine Y 05/01/16 20:28 Completed Date of admission: 04/30/16 19:44 Primary care physician: Rupal Perez DO Consults: 04/30/16 20:20 Consult to Neurology [CONS] Routine Consulting Provider: Neurology [facility] Reason for Consult: TIA; h/o brain cancer Time Notified: 20:25 Call Completed: Yes Consult to Speech Therapy [CONS] Routine Comment: Evaluate, develop and implement POC Reason for Consult: TIA; expressive aphasia -- resolved Call Completed: No 04/30/16 20:25 Consult to Occupational Therapy [CONS] Routine Comment: Evaluate, develop and implement POC Consult to Physical Therapy [CONS] Routine Comment: Evaluate, develop and implement POC 05/01/16 14:16 Consult to Interpret Exam [CONS] Routine Consulting Provider: Jhon Cox Consult to Interpret Exam: Interpret EEG Discharging clinician: Marlen Pozo Anticipated date of discharge: 05/02/16 - Patient Status Disposition: Home, Self-Care Condition: Good Functional capacity at discharge: independent ambulation Overall status at discharge: patient is back to baseline - Discharge Instructions Instructions: Chronic Hypertension (DC) Follow Up With: Rupal Perez DO [Primary Care Provider] - 05/08/16 10:45 am Jhon Cox MD [Partnered Physician] - (F/U 2-3 weeks) - Diet and Activity Activity: resume usual activities as tolerated Diet: diabetic diet Hospital course: Mr. Silvestre is a 70 year old male to history of hypertension, brain tumor that was resected, presented to the ER with complaints of Expressive aphasia and left-sided facial droop. Symptoms had subsided by the time he arrived to the ER. Patient follows with neurology at [facility]. Given his symptoms, he was worked up for TIA and underwent MRI of the brain, carotid Doppler scan to echocardiogram. Neurology was also consulted. His MRI did not show any acute stroke. Neurology recommended that the patient be started on Keppra and follow up with neurology as outpatient due to possible undiagnosed seizure given his history of brain tumor and surgery. He underwent EEG which did not show any epileptic activity. Carotid Dopplers showed about 40-59% stenosis on the right ICA. Left ICA was normal. His 2-D echocardiogram did not show any PFO. He had a normal ejection fraction. Patient has been started on aspirin and will continue to take Zocor for his possible TIA and will also follow up with neurology as outpatient for further management of his possible seizures. He has been evaluated by physical therapy, speech therapy and occupational therapy and was recommended no further therapy at this point. - Time Spent with Patient Total time spent providing and/or coordinating discharge services: Less than 30 minutes (30 min) - Constitutional Vitals: Temp Pulse Resp BP Pulse Ox 97.6 F 68 16 121/79 93 L 05/02/16 07:54 05/02/16 07:54 05/02/16 07:59 05/02/16 07:59 05/02/16 07:59 General appearance: Present: cooperative, A&O X 3, pleasant, no acute distress, answers questions appropriately - Respiratory Respiratory exam: Present: CTAB. Absent: accessory muscle use, rales, rhonchi, wheezes - Cardiovascular Cardiovascular exam: Present: RRR, +S1, +S2. Absent: diastolic murmur, gallop, rubs, systolic murmur - GI/Abdominal GI/Abdominal exam: Present: normal bowel sounds, soft, no peritoneal signs. Absent: distended, tenderness - Extremities Exam Extremities exam: Present: warm, radial pulses palpable and symetrical. Absent : calf tenderness, cyanotic, pedal edema - Skin Skin exam: Present: dry, intact - Attending Attestation This document has been at least partially created by [employer] recognition technology by Dr. Pozo. Errors in grammar, wording or other phrases may exist. If errors are found after the documentation is signed, they will be addressed individually in the addendum section of this document when appropriate.
== END 2016-05-02 12:00 | disposition home or self-care (01) ==
LOC: EMEROO 16:49 → 3BNU 16:49 → SUATTDRO 19:44 → 3BNU 20:31
PROVIDERS: ADMIT Nurse Practitioner Family; ATTEND Internal Medicine

== ENCOUNTER 2016-07-13 17:04 | Inpatient (IN) ==
[2016-07-13] MEDS: 0.9 % Sodium Chloride 2,500 ML IVC SCH ×2 (17:26→21:00)
[2016-07-13 17:36] LABS: Basophils % 0.1 %; Eosinophils # 0.1 K/mcL (0.0-0.6); Eosinophils % 0.3 %; Hematocrit 39.4 % (37.5-50.1); Hemoglobin 13.1 g/dL (12.9-16.9); Immature Granulocytes % 0.8 % (0-4); Lymphocytes # 0.5 K/mcL (0.6-4.6); Lymphocytes % 2.7 %; Mean Corpuscular HGB Conc 33.2 g/dL (31.6-35.5); Mean Corpuscular Hemoglobin 29.7 pg (28.0-33.3); Mean Corpuscular Volume 89.3 fL (83.0-100.0); Mean Platelet Volume 8.3 fL (9.4-12.4); Monocytes # 0.3 K/mcL (0.0-1.3); Monocytes % 1.9 %; Neutrophils # 16.7 K/mcL (1.6-8.9); Platelet Count 357 K/mcL (140-400); Red Blood Count 4.41 M/mcL (4.19-5.50); Red Cell Distribution Width 14.8 % (11.5-14.5); Segmented Neutrophils % 94.2 %
[2016-07-13 17:40] LABS: INR 1.2; Prothrombin Time 12.8 Seconds (9.4-12.1)
[2016-07-13 17:43] LABS: Activated Partial Thrombo Time 27.5 Seconds (26.0-36.0)
[2016-07-13 17:51] LABS: BUN/Creatinine Ratio 24 (6-26); Bilirubin,Total 1.4 mg/dL (0.2-1.2); Blood Urea Nitrogen 22 mg/dL (8-26); Calcium 9.8 mg/dL (8.6-10.8); Carbon Dioxide 22 mEq/L (19-29); Chloride 99 mEq/L (98-109); Glucose 122 mg/dL (70-99); Magnesium 2.1 mg/dL (1.6-2.6); Osmolality,Calculated 281 (280-300); Phosphorous 2.4 mg/dL (2.3-4.7); Potassium 4.4 mEq/L (3.5-4.5); Sodium 133 mEq/L (136-145); eGFR For African Americans > 60 (> 60); eGFR For Non-African Americans > 60 (> 60)
[2016-07-13 17:52] LABS: Alanine Aminotransferase 34 Units/L (0-55); Albumin 3.3 g/dL (3.5-5.0); Albumin/Globulin Ratio 0.8 (1.1-2.2); Alkaline Phosphatase 101 Units/L (38-126); Aspartate Amino Transferase 23 Units/L (5-34); Bilirubin,Direct 0.8 mg/dL (0.0-0.5); Bilirubin,Indirect 0.6 mg/dL (0.0-1.2); Globulin 4.3 g/dL (2.4-3.5); Lipase 22 Units/L (8-78); Total Protein 7.6 g/dL (6.0-8.3)
[2016-07-13] MEDS ORDERED: Ondansetron 4 MG/2 ML VIAL IVP ONE (17:57)
[2016-07-13] MEDS ORDERED: Piperacillin/Tazobactam 3.375 GM in D5% in Water (Mini-Bag+) 100 ML IVPB ONE (18:01)
[2016-07-13 18:26] LABS: Platelet Estimate Normal (Normal)
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
[2016-07-13 20:32] LABS: Bilirubin,Urine Small (Negative); Blood,Urine Negative (Negative); Clarity,Urine Cloudy (Clear); Color,Urine Dark Yellow (Yellow); Glucose,Urine (UA) Normal (Normal); Ketones,Urine 40 mg/dL (Negative); Leukocyte Esterase,Urine Negative (Negative); Nitrite,Urine Negative (Negative); PH,Urine 5.5 pH Units (5.0-8.0); Protein,Urine Trace mg/dL (Neg-Trace); Specific Gravity,Urine 1.029 (1.010-1.025)
[2016-07-13 20:33] LABS: Bacteria,Urine None Seen per hpf (None-Few); Hyaline Casts,Urine None Seen per lpf (None-Few); RBC,Urine 0-3 per hpf (0-3); Squamous Epithelial Cell,Urine Many per lpf (None-Few); WBC,Urine 0-3 per hpf (0-3)
[2016-07-13] MEDS ORDERED: Bisacodyl 10 MG RECTAL SUPPOSITORY RC PRN (22:10)
[2016-07-13] MEDS ORDERED: Acetaminophen 325 MG TABLET PO PRN (22:10)
[2016-07-13] MEDS ORDERED: Albuterol 2.5 MG/3 ML NEBULIZER IH PRN (22:13)
[2016-07-13] MEDS ORDERED: Ondansetron 4 MG/2 ML VIAL IVP PRN (22:13)
[2016-07-13] MEDS ORDERED: Naloxone 0.4 MG/ML INJ IVP PRN (22:13)
[2016-07-13] MEDS ORDERED: Benzonatate 100 MG CAPSULE PO PRN (22:25)
--- NOTE | 2016-07-13 22:38 | Internal Med History&Physical ---
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 Incontinent Bowel Continent Normal Bowel Pattern Daily Date of Last Known Bowel Movement 07/12/16 Intake and Output, Strict Start: 07/13/16 20: 26 Freq: Q8H Status: Active Document 07/13/16 22:01 BLE (Rec: 07/13/16 22:01 BLE [id number]) Intake and Output Intake, Oral Amount 0 Output, Urine Amount 0 NIHSS Start: 07/13/16 17: 12 Freq: ONCE Status: Complete Document 07/13/16 17:12 JDA (Rec: 07/13/16 17:19 [id number] NIH Stroke Scale Telemedicine used* No LOC Alert Month, Age Answers both correctly 1. Open, then close eyes 2. Make fist, Performs both correctly then let go Ability to follow examiner's finger Normal across horizontal plane Visual stimulus to pt's visual field No visual loss quadrants Shows teeth, raise eyebrows, squeeze Normal eyes shut Left: Extends arms, palms down holds for No drift for 10 seconds 10 seconds Right: Extends arms, palms down holds No drift for 10 seconds for 10 seconds Left: While supine, hold leg at 30 No drift for 5 seconds degrees for 5 seconds Right: While supine, hold leg at 30 No drift for 5 seconds degrees for 5 seconds Finger to nose. Heel down mcintyre. Normal, No Ataxia Pin prick to face, arm, trunk, and leg. Normal Compare side to side Name items, describe a picture, and read No aphasia sentences Evaluate speech clarity by pt repeating Normal listed words Use prior testing Modality=visual, Normal tactile/auditory, spacial NIHSS Total Score 0 Oxygen administration Start: 07/13/16 20: 26 Freq: Q12H Status: Active Document 07/13/16 21:08 Aron (Rec: 07/13/16 21:27 [id number] Oxygen Oxygen Delivery Method Room Air Patient Belongings Start: 07/13/16 20: 26 Freq: .ONCE Status: Active Document 07/13/16 20:51 Aron (Rec: 07/13/16 21:04 [id number] Patient Belongings Belongings With Patient on Admission Yes In Patient Closet Patient Belongings Shirt Belongings Comment arm sling, Patient Rounding Start: 07/13/16 17: 05 Freq: Q30M Status: Active Document 07/13/16 17:12 JDA (Rec: 07/13/16 17:19 DA [id number]) Patient Rounding Safety Call Light Within Reach Bed Position Low Bed Brake On Side Rails Up X2 Rounding Completed? Yes Patient Rounding Updated patient/family on Plan of Care Checked for Patient Positioning Patient Awake Document 07/13/16 17:30 JDA (Rec: 07/13/16 18:53 JDA [id number]) Patient Rounding Safety Call Light Within Reach Bed Position Low Bed Brake On Side Rails Up X2 Rounding Completed? Yes Patient Rounding Updated patient/family on Plan of Care Checked for Patient Positioning Patient Awake Document 07/13/16 18:00 JDA (Rec: 07/13/16 18:53 JDA [id number]) Patient Rounding Safety Call Light Within Reach Bed Position Low Bed Brake On Side Rails Up X2 Rounding Completed? Yes Patient Rounding Updated patient/family on Plan of Care Checked for Patient Positioning Patient Awake Document 07/13/16 18:30 JDA (Rec: 07/13/16 18:54 JDA [id number]) Patient Rounding Safety Call Light Within Reach Bed Position Low Bed Brake On Side Rails Up X2 Rounding Completed? Yes Patient Rounding Updated patient/family on Plan of Care Checked for Patient Positioning Patient Awake Patient Rounding Start: 07/13/16 20: 26 Freq: Q1H Status: Active Document 07/13/16 20:26 BLE (Rec: 07/13/16 22:01 BLE [id number]) Hourly Rounding Hourly Rounding Checked for Patient Positioning Patient Personal Items Placed Within Reach Hourly Rounding Completed Yes Patient Awake Is family present? Yes Safety Call Light Within Reach Bed Position Low Fall Precautions Phone Within Reach Bed Brake On Side Rails Up X2 Are the Floors Free From Trip Hazards? Yes Is the Room Free From Clutter? Yes Turn and Postion Bedrest No Turn Q 2HR No Patient Position Back Document 07/13/16 21:08 Aron (Rec: 07/13/16 21:27 Aron [id number]) Hourly Rounding Hourly Rounding Checked for Patient Positioning Patient Personal Items Placed Within Reach Checked Patient Pain Level Hourly Rounding Completed Yes Patient Awake Is family present? Yes: spouse at bedside Safety Call Light Within Reach Bed Position Low Fall Precautions Phone Within Reach Bed Brake On Side Rails Up X2 Are the Floors Free From Trip Hazards? Yes Is the Room Free From Clutter? Yes Turn and Postion Bedrest No Turn Q 2HR No Patient Position Back Positioning Aides Pillows Saline lock insertion/management Start: 07/13/16 17: 05 Freq: Status: Active Document 07/13/16 17:21 JDA (Rec: 07/13/16 17:23 JDA [id number]) IV Insertion/Site Assessment IV Attempt 1 Successful Successful Blood drawn and sent to Lab Yes Right Antecubital Date of Insertion 07/13/16 Time of Insertion 17:15 Reason for IV Insertion Replace Lost Fluids Provide Access for IV Medication(s) Provide Access for Emergency IV Catheter Type Peripheral IV Gauge (gauge) 18 Site Observation Patent Dressing Applied Window Dressing Transparent Dressing Patient Tolerance Tolerated Well Sepsis Screening Start: 07/13/16 20: 26 Freq: Q8H Status: Active Document 07/13/16 21:08 [facility] (Rec: 07/13/16 21:27 [facility] [id number]) Sepsis Screening Sepsis Infection Criteria Present suspected infection Sepsis SIRS Criteria WBC > 12k or < 4k or bands > 10% HR > 90 bpm Sepsis Organ Dysfunction Criteria none Present Sepsis Screen Sepsis Risk Sepsis Action Taken no action required Skin Risk Assessment Scale Start: 07/13/16 20: 26 Freq: Q12H Status: Active Document 07/13/16 21:08 Aron (Rec: 07/13/16 21:27 [id number] Skin Risk Assessment Scale Moisture Risk Occasionally Moist Sensory Perception No Impairment Activity Risk Bedfast Mobility Risk Very Limited Nutrition Risk Probably Inadequate Friction & Shear Risk Potential Problem Skin Risk Total Score (points) 14 System Review Start: 07/13/16 20: 26 Freq: Q8H Status: Active Document 07/13/16 21:08 Aron (Rec: 07/13/16 21:27 [id number] Pain Assessment Pain Present Reports Pain Back Pain Intensity 4 Description Stabbing Scale Used Numeric (1 - 10) Pain Intervention Position Distraction Neurological Assessment Eye Opening Spontaneous Motor Obeys Commands Verbal Oriented Coma Scale Total 15 Neurologic Status Alert Patient Orientation Person Place Arousable To Name Speech Pattern Mumbled Patient Behavior Appropriate Cooperative Mood Description Calm Relaxed Appropriate Bilateral Pupil Reaction Reactive Pupil Size (mm) 2 Pupil [place] Equal Scleral Edema No All Four Limbs Strength Normal for Patient Payment Analyst Strength Equal Push/Pull Equal Numbness/Tingling No Facial Symmetry Symmetrical Cardiovascular Assessment Signs and Symptoms None Heart Sounds S1 & S2 Pulse Rhythm Regular Jugular Vein Distention None Capillary Refill < 3 Seconds Circulatory Tenderness Description None Right Radial 2+ Left Radial 2+ Right Dorsalis Pedis 2+ Left Dorsalis Pedis 2+ Mechanical Prophylaxis No Respiratory Assessment Respiratory Symptoms None Effort Normal for Patient Spontaneous Non-Labored Depth Normal Respiratory Pattern Regular Chest Shape Normal Expansion Symmetrical All Lung Waller Expiratory Rhonchi Oxygen Delivery Method Room Air Cough Description None Gastrointestinal Assessment Abdomen Description Flat Soft Non-Tender 3 or more loose stools, in less than 24 No hours Nausea/Vomiting Presence None All Four Quadrants Active Flatus Presence Present Genitourinary Assessment Voiding Method Urinal Brief Bladder Distention None Suprapubic Tenderness with Palpation No Integumentary Assessment Nail Bed Appearance [place] Temperature Hot Moisture Dry Turgor Elastic Color Flushed All Pressure Points Assessed Yes Evidence of Incision/Wounds/Breakdown No: pt has multiple bruising from left shoulder to left leg Mucous membranes moist, pink and intact Yes Oral Cavity Missing Teeth Integumentary Comment: scab to right middle finger and redness to coccyx Musculoskeletal Assessment Musculoskeletal Symptoms Generalized Weakness Fracture Musculoskeletal Comment: fracture to left shoulder and hip Teaching Record Start: 07/13/16 20: 26 Freq: Q12H Status: Active Document 07/13/16 21:08 Aron (Rec: 07/13/16 21:27 Aron [id number]) Teaching Record: General Education Topics Medications Hospital Environment Diet Response Verbalize understanding Methods Discussion Recipient Patient Education Provided: Details pt educated on use of call light, oriented to room, discussed orders with pt and spouse. 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 General Appearance in no apparent distress Work Related Injury? No Mode of arrival EMS Arrival via EMS [facility] Source EMS Limitations altered mental status Ebola Risk: Travel/Contact With Anyone No From Affected Area/s Temperature (97.6 F-99.6 F) 99.5 F Temperature Source Oral Pulse Rate 107 Respiratory Rate 18 Blood Pressure 151/68 O2 Sat by Pulse Oximetry 90 Oxygen Delivery Nasal Cannula Height 1.75 m Weight 81.647 kg Weight Measurement Method Estimated by Patient Pain Scale 8 Pain Scale Used Standard (1-10) Medical history asthma COPD CVA hypertension other Male surgical history angioplasty/stent other Additional surgical history PMH 2 stents, brain surgery Psychiatric history no psych history Smoking Status Former smoker Smokeless Tobacco Status No Alcohol Use none Drug Use none Patient resides with/at [facility] Safety Concerns Feels Safe At This Time Do you currently feel hopless, have No thoughts of self harm, or thoughts of harming others History of fall in last 14 days? No Influenza vaccine up to date Yes Pneumonia vaccine up to date Yes Tetanus UTD yes Father Hx Family Cancer Yes: bone Brother Family Member Living Status Hx Family Cardiac Disorders Yes: MS Hx Family Neurologic Problems No Vital Signs Assessment Start: 07/13/16 17: 12 Freq: PROTOCOL Status: Active Document 07/13/16 17:30 JDA (Rec: 07/13/16 18:53 JDA [id number]) ED Vital Signs Pain Reported Pain Reported Pain Scale 7 Blood Pressure 148/68 Pulse Rate 98 Respiratory Rate 16 Pulse Oximetry 94 Oxygen Delivery Nasal Cannula Oxygen Flow Rate (LPM) 2 Document 07/13/16 18:00 JDA (Rec: 07/13/16 18:53 JDA [id number]) ED Vital Signs Pain Reported No Pain Reported Blood Pressure 141/69 Pulse Rate 104 Respiratory Rate 18 Pulse Oximetry 94 Oxygen Delivery Nasal Cannula Oxygen Flow Rate (LPM) 2 Document 07/13/16 18:30 JDA (Rec: 07/13/16 18:54 JDA [id number]) ED Vital Signs Pain Reported Pain Reported Pain Scale 6 Pain Scale Used Standard (1-10) Blood Pressure 143/69 Pulse Rate 105 Respiratory Rate 18 Pulse Oximetry 94 Oxygen Delivery Nasal Cannula Oxygen Flow Rate (LPM) 2 Document 07/13/16 22:02 BLE (Rec: 07/13/16 22:01 BLE [id number]) Vital Signs Assessment Start: 07/13/16 20: 26 Freq: Q4H Status: Active Document 07/13/16 22:02 BLE (Rec: 07/13/16 22:01 BLE [id number]) Vital Signs with MEWS Temperature (97.6 F-99.6 F) 99.3 F Temperature Source Oral Pulse Rate 99 Respiratory Rate 16 Pulse Oximetry 91 Oxygen Delivery Room Air Blood Pressure 126/67 Blood Pressure Location Right Arm Source Automatic Cuff Position HOB Elevated Neuro Status *recalled from last Alert documentation MEWS Score 1 Discharge Information ED Provider: Jamil Abebe Status: Departed Time Seen by Provider: 07/13/16 17:11 Condition: Triaged At: 07/13/16 17:07 Emergency Discharge Date/Time: 07/13/16 20:39 Emergency Discharge Disposition: Admitted As Inpatient Clinical Impression Hospital-acquired bacterial pneumonia SIRS (systemic inflammatory response syndrome) Emergency Discharge Comment: Admit Intervention Last Done ED Fever Assessment ED Discharge Assessment 07/13/16 20:18 Query Result ED Discharge Disposition Admitted ED Condition on Discharge Fair Med Rec/Patient Phamracy completed? Yes ED Admit to 3A Bed assigned 3A35 Transported by EMS transport team Report given to Nurse Care transferred to Mark, RN Information relayed patient's care treatments medications given condition recent/anticipated change Clinical Documentation Summary Provided Yes Severity scale (1-10) 0 Pain Scale Used Standard (1-10) Blood Pressure 112/55 Heart rate 99 Respiratory Rate 18 Oxygen Delivery Nasal Cannula Pulse Oximetry Reading 93 Critical Care Minutes 0 ED Altered Mental Status Assessment 07/13/16 17:15 Query Result Sepsis Infection Criteria Present suspected infection Sepsis SIRS Criteria HR > 90 bpm Sepsis Screen No Definite Risk Sepsis Action Taken no action required Altered Mental Status Symptoms/Complaint Altered Mental Status Altered Mental Status Onset this morning. Mental Status Timing Confirmed By Caregiver Altered Mental Status Severity Moderate Level Of Consciousness Awake Follows Commands Patient Orientation Person Age Date of Patient Behavior Appropriate Cooperative Ability to Follow Directions Fair Impaired Cognition Yes Respiratory Depth Normal Skin Temperature Warm Skin Moisture Dry Coma Scale Eye Opening Spontaneous Coma Scale Motor Response Obeys Commands Coma Scale Verbal Response Confused Coma Scale Total 14 ED Comment Pt presents with C/O AMS, fever and hypotension that started this morning and has been persistent. Observation Discharge Date/Time: Observation Discharge Disposition: Observation Discharge Comment: Instructions: Stand-Alone Forms: Prescriptions: Visit Report - Forms: - Referrals: Radiology Results Chest X-Ray 07/13/16 17:12
[2016-07-13] MEDS: Ipratropium/Albuterol Neb 3 ML IH SCH (22:47)
[2016-07-13 22:57] LABS: ABG HCO3 21.6 mEQ/L (21-27); ABG Oxygen Saturation 87 % (95-98); ABG PCO2 29 mmHg (35-45); ABG PH 7.48 pH Units (7.32-7.45); ABG TCO2 22.5 mEq/L (20-26)
[2016-07-13 22:59] LABS: ABG PO2 49 mmHg (85-104); Blood Gas FiO2 21 %
[2016-07-13] MEDS ORDERED: Vancomycin 1,250 MG in D5% in Water 250 ML IVPB SCH (23:00)
[2016-07-13] MEDS: 0.9 % Sodium Chloride 1,000 ML IVC SCH (23:17)
[2016-07-13] MEDS: Piperacillin/Tazobactam 3.375 GM in D5% in Water (Mini-Bag+) 100 ML IVPB SCH (23:18)
[2016-07-13] MEDS: Famotidine 20 MG TABLET PO SCH (23:19)
[2016-07-14] MEDS ORDERED: *HR* Promethazine 25 MG/ML VIAL IVP ONE (00:43)
[2016-07-14] MEDS: Vancomycin 1,500 MG in D5% in Water 250 ML IVPB SCH ×2 (01:31→13:35)
[2016-07-14 01:46] LABS: Bilirubin,Urine Moderate (Negative); Blood,Urine Negative (Negative); Clarity,Urine Cloudy (Clear); Color,Urine Dark Yellow (Yellow); Glucose,Urine (UA) Normal (Normal); Ketones,Urine 15 mg/dL (Negative); Leukocyte Esterase,Urine Negative (Negative); Nitrite,Urine Negative (Negative); PH,Urine 5.5 pH Units (5.0-8.0); Protein,Urine Negative (Neg-Trace); Specific Gravity,Urine 1.027 (1.010-1.025)
[2016-07-14 01:47] LABS: Bacteria,Urine None Seen per hpf (None-Few); Hyaline Casts,Urine None Seen per lpf (None-Few); RBC,Urine 0-3 per hpf (0-3); Squamous Epithelial Cell,Urine Moderate per lpf (None-Few); WBC,Urine 0-3 per hpf (0-3)
[2016-07-14] MEDS: Ipratropium/Albuterol Neb 3 ML IH SCH ×4 (04:25→22:24)
[2016-07-14] MEDS ORDERED: *HR* Promethazine 25 MG/ML VIAL IVP PRN (05:25)
[2016-07-14] MEDS ORDERED: Ondansetron 4 MG/2 ML VIAL IVP PRN (05:27)
[2016-07-14 05:58] LABS: VBG HCO3 20.6 mEq/L (21-27); VBG PH 7.49 pH Units (7.32-7.42)
[2016-07-14 05:59] LABS: Hematocrit 29.8 % (37.5-50.1); Mean Corpuscular HGB Conc 33.6 g/dL (31.6-35.5); Mean Corpuscular Hemoglobin 30.8 pg (28.0-33.3); Mean Corpuscular Volume 91.7 fL (83.0-100.0); Mean Platelet Volume 8.7 fL (9.4-12.4); Platelet Count 283 K/mcL (140-400); Red Blood Count 3.25 M/mcL (4.19-5.50); Red Cell Distribution Width 15.1 % (11.5-14.5)
[2016-07-14 06:13] LABS: Hemoglobin A1C 4.9 %
[2016-07-14 06:17] LABS: BUN/Creatinine Ratio 23 (6-26); Blood Urea Nitrogen 21 mg/dL (8-26); Calcium 8.8 mg/dL (8.6-10.8); Carbon Dioxide 18 mEq/L (19-29); Chloride 103 mEq/L (98-109); Glucose 124 mg/dL (70-99); Magnesium 1.9 mg/dL (1.6-2.6); Osmolality,Calculated 280 (280-300); Sodium 133 mEq/L (136-145); eGFR For African Americans > 60 (> 60); eGFR For Non-African Americans > 60 (> 60)
[2016-07-14 06:39] LABS: Thyroid Stimulating Hormone 2.173 mcIU/mL (0.350-4.840)
[2016-07-14] MEDS: MethylPREDNISolone 40 MG/ML VIAL IVP SCH ×3 (06:42→17:52)
[2016-07-14 07:02] LABS: C-Reactive Protein 247 mg/L (Less than 5)
[2016-07-14] MEDS: Levofloxacin 750 MG/150 ML 750 MG/150 ML BAG IVPB SCH (07:32)
[2016-07-14] MEDS: Piperacillin/Tazobactam 3.375 GM in D5% in Water (Mini-Bag+) 100 ML IVPB SCH ×2 (08:26→16:30)
[2016-07-14] MEDS: *HR* Enoxaparin 40 MG/0.4 ML SYRINGE SQ SCH (08:27)
[2016-07-14] MEDS: Sucralfate 1 GM TABLET PO SCH ×2 (08:33→16:54)
[2016-07-14] MEDS: Aspirin 81 MG TAB.CHEW PO SCH (08:33)
[2016-07-14] MEDS: Lactobacillus 1 EACH CAP.SPRINK PO SCH (08:34)
[2016-07-14] MEDS: Famotidine 20 MG TABLET PO SCH ×2 (08:35→20:34)
[2016-07-14] MEDS: NIFEdipine XL (24 HR) 30 MG TAB.ER.24 PO SCH (08:35)
[2016-07-14] MEDS: levETIRAcetam 250 MG TABLET PO SCH ×2 (08:35→20:35)
[2016-07-14] MEDS: Sennosides 8.6 MG TABLET PO SCH (08:35)
--- NOTE | 2016-07-14 09:05 | Electrocardiograph Report ---
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
[2016-07-14] MEDS: *HR* Morphine 2 MG/ML SYRINGE IVP PRN ×2 (09:27→12:35)
[2016-07-14] MEDS: Ondansetron 4 MG/2 ML VIAL IVP PRN ×2 (09:57→20:47)
--- NOTE | 2016-07-14 10:49 | Internal Med Progress Note ---
Date of Encounter: 07/14/16 Time of Encounter: 10:48 - Assessment and plan (1) Sepsis due to pneumonia Current Visit: Yes Status: Acute Assessment and plan: We will treat him for healthcare associated pneumonia given recent hospitalization at [facility]. Continue treatment with Zosyn and Levaquin and vancomycin. Follow-up cultures. We will de-escalate care blood cultures are negative and the patient is afebrile for 48 hours. Provide supplemental oxygen by nasal cannula. Incentive spirometry. Follow-up sputum culture. (2) COPD (chronic obstructive pulmonary disease) Current Visit: No Status: Chronic Assessment and plan: Mild exacerbation secondary to pneumonia. We will treat this with IV Solu- Medrol and inhaled albuterol and Atrovent. Qualifiers: COPD type: chronic bronchitis Chronic bronchitis type: unspecified Qualified Code(s): J42 - Unspecified chronic bronchitis (3) HTN (hypertension) Current Visit: No Status: Chronic Assessment and plan: We will continue treatment with nifedipine. Qualifiers: Hypertension type: essential hypertension Qualified Code(s): I10 - Essential (primary) hypertension (4) DVT prophylaxis Current Visit: No Status: Acute Assessment and plan: Start Lovenox for DVT prophylaxis. The patient has a high risk for DVT due to recent trauma. (5) Hospital-acquired bacterial pneumonia Current Visit: Yes Status: Acute Assessment and plan: We will treatwith broad-spectrum IV antibiotics. (6) Toxic metabolic encephalopathy Current Visit: Yes Status: Acute Assessment and plan: We will treat the cause in pneumonia and sepsis. - Subjective Interval history: Patient was admitted yesterday for mental confusion. His mental status. Currently improved. He reports moderate left hip pain and left shoulder pain, better at rest. Denies associated fever. He says he has had no problems swallowing and he does not want to be on thickened liquids. - Constitutional Vitals: Temp Pulse Resp BP Pulse Ox 99.6 F 89 16 155/77 98 07/14/16 07:58 07/14/16 07:58 07/14/16 07:58 07/14/16 07:58 07/14/16 07:58 - Eye Eye exam: Present: PERRL, conjuntiva pink, sclera anicteric Pupils: Present: PERRL - Respiratory Respiratory exam: Present: CTAB. Absent: accessory muscle use, rales, rhonchi, wheezes - Cardiovascular Cardiovascular exam: Present: RRR, +S1, +S2. Absent: diastolic murmur, gallop, rubs, systolic murmur - GI/Abdominal GI/Abdominal exam: Present: normal bowel sounds, soft, no peritoneal signs. Absent: distended, tenderness - Extremities Exam Extremities exam: Present: warm, radial pulses palpable and symetrical. Absent : calf tenderness, cyanotic, pedal edema - Neurological Exam Neurological exam: Present: CN II-XII intact, oriented X3, no focal deficits. Absent: pronater drift, facial droop, speech deficit - Skin Skin exam: Present: dry, intact Internal Medicine: Result - Labs CBC & Chem 7: 07/14/16 05:04 07/14/16 05:04 Labs: Short CBC 07/14/16 Range/Units 05:04 WBC 25.8 H (4.3-11.1) K/mcL Hgb 10.0 L D (12.9-16.9) g/dL Hct 29.8 L (37.5-50.1) % Plt Count 283 (140-400) K/mcL BMP 07/14/16 05:04 Sodium 133 L Potassium 4.0 Chloride 103 Carbon Dioxide 18 L BUN 21 Creatinine 0.91 Glucose 124 H Calcium 8.8 Urine 07/13/16 07/14/16 Range/Units 20:08 01:30 Urine Color Dark Yellow Dark Yellow (Yellow) Urine Clarity Cloudy A Cloudy A (Clear) Urine pH 5.5 5.5 (5.0-8.0) pH Units Ur Specific [place] 1.029 H 1.027 H (1.010-1.025) Urine Protein Trace Negative (Neg-Trace) mg/dL Urine Glucose (UA) Normal Normal (Normal) mg/dL - ABG Interpretation ABG results: ABG ABG pH 7.48 pH Units (7.32-7.45) H 07/13/16 22:45 ABG pCO2 29 mmHg (35-45) L 07/13/16 22:45 ABG pO2 49 mmHg (85-104) L* 07/13/16 22:45 ABG O2 Saturation 87 % (95-98) L 07/13/16 22:45 PT/INR, D-dimer PT 12.8 Seconds (9.4-12.1) H 07/13/16 17:26 - Impressions Impressions Chest CTA 07/14/16 05:30 IMPRESSION: 1. Limited study with no convincing evidence for pulmonary embolus. Emboli in the lower lobes cannot be excluded. 2. Extensive bilateral pneumonia. 3. Bilateral lower lobe airway secretions. D/ / Binh Brooks MD / Binh Brooks MD Interpreting Provider: Binh Brooks MD Consult Discharge Plan - Plan Referrals: Rupal Perez DO [Primary Care Provider] -
[2016-07-14] MEDS: 0.9 % Sodium Chloride 1,000 ML IVC SCH (20:46)
[2016-07-15] MEDS: Piperacillin/Tazobactam 3.375 GM in D5% in Water (Mini-Bag+) 100 ML IVPB SCH ×3 (00:09→17:02)
[2016-07-15] MEDS: MethylPREDNISolone 40 MG/ML VIAL IVP SCH ×4 (00:09→17:01)
[2016-07-15] MEDS: Vancomycin 1,500 MG in D5% in Water 250 ML IVPB SCH ×2 (00:09→13:24)
[2016-07-15] MEDS: Ipratropium/Albuterol Neb 3 ML IH SCH ×4 (04:08→22:08)
[2016-07-15 04:20] LABS: Hematocrit 29.9 % (37.5-50.1); Hemoglobin 10.1 g/dL (12.9-16.9); Mean Corpuscular HGB Conc 33.8 g/dL (31.6-35.5); Mean Corpuscular Hemoglobin 29.6 pg (28.0-33.3); Mean Corpuscular Volume 87.7 fL (83.0-100.0); Mean Platelet Volume 8.2 fL (9.4-12.4); Platelet Count 275 K/mcL (140-400); Red Blood Count 3.41 M/mcL (4.19-5.50); Red Cell Distribution Width 14.2 % (11.5-14.5)
[2016-07-15 04:37] LABS: BUN/Creatinine Ratio 21 (6-26); Blood Urea Nitrogen 16 mg/dL (8-26); Calcium 8.8 mg/dL (8.6-10.8); Carbon Dioxide 25 mEq/L (19-29); Chloride 99 mEq/L (98-109); Glucose 160 mg/dL (70-99); Magnesium 2.1 mg/dL (1.6-2.6); Osmolality,Calculated 275 (280-300); Potassium 3.8 mEq/L (3.5-4.5); Sodium 130 mEq/L (136-145); eGFR For African Americans > 60 (> 60); eGFR For Non-African Americans > 60 (> 60)
[2016-07-15 04:58] LABS: Lymphocytes # 0.3 K/mcL (0.6-4.6); Monocytes # 0.3 K/mcL (0.0-1.3); Neutrophils # 13.1 K/mcL (1.6-8.9); Platelet Estimate Normal (Normal)
[2016-07-15] MEDS ORDERED: Aminoglycoside Consult 1 EACH MC ONE (08:00)
[2016-07-15] MEDS: Sennosides 8.6 MG TABLET PO SCH (08:29)
[2016-07-15] MEDS: Famotidine 20 MG TABLET PO SCH ×2 (08:29→20:36)
[2016-07-15] MEDS: levETIRAcetam 250 MG TABLET PO SCH ×2 (08:31→20:39)
[2016-07-15] MEDS: Lactobacillus 1 EACH CAP.SPRINK PO SCH (08:31)
[2016-07-15] MEDS: Aspirin 81 MG TAB.CHEW PO SCH (08:31)
[2016-07-15] MEDS: Sucralfate 1 GM TABLET PO SCH ×2 (08:31→17:02)
[2016-07-15] MEDS: *HR* Enoxaparin 40 MG/0.4 ML SYRINGE SQ SCH (08:31)
[2016-07-15] MEDS: NIFEdipine XL (24 HR) 30 MG TAB.ER.24 PO SCH (08:31)
[2016-07-15] MEDS: Levofloxacin 750 MG/150 ML 750 MG/150 ML BAG IVPB SCH (08:40)
--- NOTE | 2016-07-15 11:08 | Internal Med Progress Note ---
Date of Encounter: 07/15/16 Time of Encounter: 11:07 - Assessment and plan (1) Sepsis due to pneumonia Current Visit: Yes Status: Acute Assessment and plan: We will treat him for healthcare associated pneumonia given recent hospitalization at [facility]. Continue treatment with Zosyn and Levaquin and vancomycin. Follow-up cultures. We will de-escalate care blood cultures are negative and the patient is afebrile for 48 hours. Provide supplemental oxygen by nasal cannula. Incentive spirometry. Follow-up sputum culture. (2) COPD (chronic obstructive pulmonary disease) Current Visit: Yes Status: Chronic Assessment and plan: Mild exacerbation secondary to pneumonia. We will treat this with IV Solu- Medrol and inhaled albuterol and Atrovent. Qualifiers: COPD type: chronic bronchitis Chronic bronchitis type: unspecified Qualified Code(s): J42 - Unspecified chronic bronchitis (3) HTN (hypertension) Current Visit: Yes Status: Chronic Assessment and plan: We will continue treatment with nifedipine. Qualifiers: Hypertension type: essential hypertension Qualified Code(s): I10 - Essential (primary) hypertension (4) DVT prophylaxis Current Visit: No Status: Acute Assessment and plan: Start Lovenox for DVT prophylaxis. The patient has a high risk for DVT due to recent trauma. (5) Hospital-acquired bacterial pneumonia Current Visit: Yes Status: Acute Assessment and plan: We will treatwith broad-spectrum IV antibiotics. (6) Toxic metabolic encephalopathy Current Visit: Yes Status: Acute Assessment and plan: Currently mental status improved with treatment of the infection. We will avoid sedatives. - Subjective Interval history: His hip pain and shoulder pain has improved. Mental status currently improved. He passed a swallow study. Patient was admitted yesterday for mental confusion. His mental status. Currently improved. He reports moderate left hip pain and left shoulder pain, better at rest. Denies associated fever. He says he has had no problems swallowing and he does not want to be on thickened liquids. - Constitutional Vitals: Temp Pulse Resp BP Pulse Ox 97.7 F 78 18 149/77 98 07/15/16 10:58 07/15/16 10:58 07/15/16 10:58 07/15/16 10:58 07/15/16 10:58 General appearance: Present: mild distress, A&O X 3, obese, answers questions appropriately - Respiratory Respiratory exam: Present: CTAB, rhonchi. Absent: accessory muscle use, rales, wheezes - Cardiovascular Cardiovascular exam: Present: RRR, +S1, +S2. Absent: diastolic murmur, gallop, rubs, systolic murmur - GI/Abdominal GI/Abdominal exam: Present: normal bowel sounds, soft, no peritoneal signs. Absent: distended, tenderness - Skin Skin exam: Present: dry, intact Internal Medicine: Result - Labs CBC & Chem 7: 07/15/16 04:08 07/15/16 04:08 Labs: Short CBC 07/15/16 Range/Units 04:08 WBC 13.6 H (4.3-11.1) K/mcL Hgb 10.1 L (12.9-16.9) g/dL Hct 29.9 L (37.5-50.1) % Plt Count 275 (140-400) K/mcL Neutrophils # 13.1 H (1.6-8.9) K/mcL BMP 07/15/16 04:08 Sodium 130 L Potassium 3.8 Chloride 99 Carbon Dioxide 25 BUN 16 Creatinine 0.75 Glucose 160 H Calcium 8.8 - ABG Interpretation ABG results: ABG ABG pH 7.48 pH Units (7.32-7.45) H 07/13/16 22:45 ABG pCO2 29 mmHg (35-45) L 07/13/16 22:45 ABG pO2 49 mmHg (85-104) L* 07/13/16 22:45 ABG O2 Saturation 87 % (95-98) L 07/13/16 22:45 PT/INR, D-dimer PT 12.8 Seconds (9.4-12.1) H 07/13/16 17:26 - VTE Documentation of Mechanical Device: Graduated compression elastic hosiery Consult Discharge Plan - Plan Referrals: Rupal Perez DO [Primary Care Provider] -
[2016-07-15] MEDS: Ondansetron 4 MG/2 ML VIAL IVP PRN (17:01)
[2016-07-15] MEDS: *HR* OxyCODONE Immed Rel 5 MG TABLET PO PRN (17:02)
[2016-07-16] MEDS: *HR* OxyCODONE Immed Rel 5 MG TABLET PO PRN ×2 (00:24→20:06)
[2016-07-16] MEDS: MethylPREDNISolone 40 MG/ML VIAL IVP SCH ×5 (00:25→23:44)
[2016-07-16] MEDS: Piperacillin/Tazobactam 3.375 GM in D5% in Water (Mini-Bag+) 100 ML IVPB SCH ×4 (00:27→23:47)
[2016-07-16] MEDS: Vancomycin 1,750 MG in D5% in Water 500 ML IVPB SCH ×2 (00:28→14:15)
[2016-07-16] MEDS: Ipratropium/Albuterol Neb 3 ML IH SCH ×5 (04:49→23:49)
[2016-07-16 05:23] LABS: Basophils % 0.1 %; Hemoglobin 9.4 g/dL (12.9-16.9); Immature Granulocytes % 1.1 % (0-4); Lymphocytes # 0.6 K/mcL (0.6-4.6); Lymphocytes % 4.3 %; Mean Corpuscular HGB Conc 33.6 g/dL (31.6-35.5); Mean Corpuscular Hemoglobin 29.7 pg (28.0-33.3); Mean Corpuscular Volume 88.3 fL (83.0-100.0); Mean Platelet Volume 8.5 fL (9.4-12.4); Monocytes # 0.5 K/mcL (0.0-1.3); Monocytes % 3.4 %; Neutrophils # 12.2 K/mcL (1.6-8.9); Platelet Count 350 K/mcL (140-400); Red Blood Count 3.17 M/mcL (4.19-5.50); Red Cell Distribution Width 14.1 % (11.5-14.5); Segmented Neutrophils % 91.1 %
[2016-07-16 05:25] LABS: BUN/Creatinine Ratio 21 (6-26); Blood Urea Nitrogen 16 mg/dL (8-26); Calcium 8.9 mg/dL (8.6-10.8); Carbon Dioxide 22 mEq/L (19-29); Chloride 102 mEq/L (98-109); Glucose 135 mg/dL (70-99); Magnesium 2.2 mg/dL (1.6-2.6); Osmolality,Calculated 279 (280-300); Sodium 133 mEq/L (136-145); eGFR For African Americans > 60 (> 60); eGFR For Non-African Americans > 60 (> 60)
[2016-07-16] MEDS: Aspirin 81 MG TAB.CHEW PO SCH (08:27)
[2016-07-16] MEDS: Lactobacillus 1 EACH CAP.SPRINK PO SCH (08:27)
[2016-07-16] MEDS: Sennosides 8.6 MG TABLET PO SCH (08:27)
[2016-07-16] MEDS: NIFEdipine XL (24 HR) 30 MG TAB.ER.24 PO SCH (08:28)
[2016-07-16] MEDS: Famotidine 20 MG TABLET PO SCH ×2 (08:28→20:04)
[2016-07-16] MEDS: Sucralfate 1 GM TABLET PO SCH ×2 (08:28→16:12)
[2016-07-16] MEDS: levETIRAcetam 250 MG TABLET PO SCH ×2 (08:29→20:03)
[2016-07-16] MEDS: *HR* Enoxaparin 40 MG/0.4 ML SYRINGE SQ SCH (08:31)
[2016-07-16] MEDS ORDERED: Levofloxacin 750 MG/150 ML 750 MG/150 ML BAG IVPB SCH (12:00)
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
[2016-07-17] MEDS: *HR* OxyCODONE Immed Rel 5 MG TABLET PO PRN (01:08)
[2016-07-17] MEDS: Ipratropium/Albuterol Neb 3 ML IH SCH ×6 (04:11→23:32)
[2016-07-17] MEDS: MethylPREDNISolone 40 MG/ML VIAL IVP SCH ×4 (06:26→23:47)
[2016-07-17] MEDS: Sucralfate 1 GM TABLET PO SCH ×2 (06:26→17:07)
[2016-07-17] MEDS: Piperacillin/Tazobactam 3.375 GM in D5% in Water (Mini-Bag+) 100 ML IVPB SCH ×3 (08:02→23:48)
[2016-07-17] MEDS: *HR* Enoxaparin 40 MG/0.4 ML SYRINGE SQ SCH (09:38)
[2016-07-17] MEDS: Aspirin 81 MG TAB.CHEW PO SCH (09:38)
[2016-07-17] MEDS: levETIRAcetam 250 MG TABLET PO SCH ×2 (09:39→20:09)
[2016-07-17] MEDS: Famotidine 20 MG TABLET PO SCH ×2 (09:39→20:08)
[2016-07-17] MEDS: Sennosides 8.6 MG TABLET PO SCH (09:39)
[2016-07-17] MEDS: NIFEdipine XL (24 HR) 30 MG TAB.ER.24 PO SCH (09:39)
[2016-07-17] MEDS: Lactobacillus 1 EACH CAP.SPRINK PO SCH (09:39)
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
[2016-07-17] MEDS: Linezolid 600 MG TABLET PO SCH (20:08)
[2016-07-18 03:25] LABS: Basophils % 0.3 %; Hematocrit 29.9 % (37.5-50.1); Hemoglobin 10.1 g/dL (12.9-16.9); Immature Granulocytes % 4.3 % (0-4); Lymphocytes # 0.8 K/mcL (0.6-4.6); Lymphocytes % 6.9 %; Mean Corpuscular HGB Conc 33.8 g/dL (31.6-35.5); Mean Corpuscular Hemoglobin 30.2 pg (28.0-33.3); Mean Corpuscular Volume 89.5 fL (83.0-100.0); Mean Platelet Volume 8.2 fL (9.4-12.4); Monocytes # 0.7 K/mcL (0.0-1.3); Monocytes % 6.3 %; Neutrophils # 8.9 K/mcL (1.6-8.9); Nucleated Red Blood Cells 0.4 /100 WBC (0); Platelet Count 399 K/mcL (140-400); Red Blood Count 3.34 M/mcL (4.19-5.50); Red Cell Distribution Width 14.6 % (11.5-14.5); Segmented Neutrophils % 82.2 %
[2016-07-18] MEDS: Ipratropium/Albuterol Neb 3 ML IH SCH ×3 (03:30→11:21)
[2016-07-18 03:37] LABS: BUN/Creatinine Ratio 18 (6-26); Blood Urea Nitrogen 17 mg/dL (8-26); Calcium 8.7 mg/dL (8.6-10.8); Carbon Dioxide 20 mEq/L (19-29); Chloride 100 mEq/L (98-109); Glucose 174 mg/dL (70-99); Osmolality,Calculated 280 (280-300); Sodium 132 mEq/L (136-145); eGFR For African Americans > 60 (> 60); eGFR For Non-African Americans > 60 (> 60)
[2016-07-18 03:39] LABS: Potassium 4.3 mEq/L (3.5-4.5)
[2016-07-18] MEDS: MethylPREDNISolone 40 MG/ML VIAL IVP SCH ×2 (05:03→12:29)
[2016-07-18] MEDS: Sucralfate 1 GM TABLET PO SCH (07:53)
[2016-07-18] MEDS: Piperacillin/Tazobactam 3.375 GM in D5% in Water (Mini-Bag+) 100 ML IVPB SCH (08:01)
[2016-07-18] MEDS: *HR* Enoxaparin 40 MG/0.4 ML SYRINGE SQ SCH (08:02)
[2016-07-18] MEDS: Linezolid 600 MG TABLET PO SCH (08:04)
[2016-07-18] MEDS: levETIRAcetam 250 MG TABLET PO SCH (08:04)
[2016-07-18] MEDS: Famotidine 20 MG TABLET PO SCH (08:05)
[2016-07-18] MEDS: Aspirin 81 MG TAB.CHEW PO SCH (08:05)
[2016-07-18] MEDS: NIFEdipine XL (24 HR) 30 MG TAB.ER.24 PO SCH (08:05)
[2016-07-18] MEDS: Lactobacillus 1 EACH CAP.SPRINK PO SCH (08:05)
[2016-07-18] MEDS: Sennosides 8.6 MG TABLET PO SCH (08:05)
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
--- NOTE | 2016-07-18 13:39 | Physician Discharge Referral ---
ExtendedCare Referral Info Transfer To: SNF Provider in Charge after Transfer: PCP Institutional Level of Care: Skilled - Diagnosis (1) Sepsis due to pneumonia Status: Acute (2) COPD (chronic obstructive pulmonary disease) Status: Chronic (3) HTN (hypertension) Status: Chronic (4) DVT prophylaxis Status: Acute (5) Toxic metabolic encephalopathy Status: Acute (6) MRSA pneumonia Status: Acute (7) Acute hypoxemic respiratory failure Status: Acute - Transfer Medications Prescriptions: Oxycodone HCl 10 mg PO Q4H PRN #30 tablet PRN Reason: Severe Pain Oxycodone HCl [Oxaydo] 5 mg PO Q4H PRN #20 tablet.orl PRN Reason: Moderate Pain Home Medications: Albuterol Sulfate [Proair Hfa] 1 puff IH Q6H PRN 10/19/15 [History] Budesonide/Formoterol 160/4.5 [Symbicort 160/4.5] 1 puff IH BIDR 10/19/15 [ History] Losartan Potassium [Cozaar] 50 mg PO DAILY 10/19/15 [History] Metoprolol [Lopressor] 25 mg PO BID 10/19/15 [History] Montelukast [Singulair] 10 mg PO DAILY 10/19/15 [History] NIFEdipine [Nifedipine ER] 30 mg PO DAILY 10/19/15 [History] Docusate [Colace] 200 mg PO BID 04/30/16 [History] Aspirin 81 mg PO DAILY #30 tab.chew 05/02/16 [Rx] Acetaminophen [Tylenol] 325 mg PO Q4H PRN 07/13/16 [History] Bisacodyl [Dulcolax] 10 mg RC DAILY PRN 07/13/16 [History] Enoxaparin [Lovenox] 40 mg SQ DAILY 07/13/16 [History] LevETIRAcetam [Keppra] 500 mg PO BID 07/13/16 [History] Ondansetron ODT [Zofran ODT] 4 mg PO Q6H PRN 07/13/16 [History] Polyethylene Glycol 3350 [Smoothlax] 17 gm PO DAILY 07/13/16 [History] Sennosides [Senna] 8.6 mg PO DAILY 07/13/16 [History] Simvastatin [Zocor] 80 mg PO HS 07/13/16 [History] Albuterol Neb [Proventil Neb] 2.5 mg IH Q2H PRN #0 inhsol 07/18/16 [Rx] Benzonatate [Tessalon] 200 mg PO TID PRN #0 capsule 07/18/16 [Rx] GuaiFENesin ER [Mucinex] 600 mg PO BID tbbp.12hr 07/18/16 [Rx] Ipratropium/Albuterol Neb [Duoneb] 3 ml IH [id number] inhsol 07/18/16 [Rx] Linezolid [Zyvox] 600 mg PO BID tablet 07/18/16 [Rx] MethylPREDNISolone [Solu-MEDROL] 40 mg IVP Q8HR vial 07/18/16 [Rx] Oxycodone HCl 10 mg PO Q4H PRN #30 tablet 07/18/16 [Rx] Oxycodone HCl [Oxaydo] 5 mg PO Q4H PRN #20 tablet.orl 07/18/16 [Rx] Allergies/Adverse Reactions: Allergies atorvastatin [From Lipitor] Adverse Reaction (Verified 10/19/15 16:34) See Comments patient states it makes him feel bad codeine Adverse Reaction (Verified 10/19/15 16:34) Gastrointestinal Upset lisinopril Adverse Reaction (Verified 10/19/15 16:34) Cough - Respiratory Orders Oxygen / L per min Smoking Cessation: Smoking cessation has been advised. For more information, call the [place] Tobacco Quit Line at 3-415-DEON-NOW. - Advance Directives Living Will: No Power of Activities Assistant: Yes Code Status: Full Code - Mobility Orders Ambulate - Rehabiliation Orders Rehab Potential: Good Rehab Orders: Evaluation for Physical Therapy, Evaluation for Occupational Therapy - Treatments Skin tear care topically daily PRN per policy - Diet Orders No Added Salt (MANA), No Concentrated Sweets, Cardiac CERTIFICATION: I certify that the transfer of the above named patient to an Extended Care Facility is necessary for the continuing treatment of the diagnosis listed. The above information is true and accurate reflection of patient's current condition. Confidential - Redisclosure prohibited without a patient's written consent.
[2016-07-21 10:34] VITALS: BP 168/98
== END 2016-07-18 14:45 | DRG 871 ==
LOC: 3ANU 17:04 → EMEROO 17:04 → SUATTDRO 19:44 → 3ANU 20:39
PROVIDERS: ADMIT Internal Medicine; ATTEND Internal Medicine

== ENCOUNTER 2017-08-20 15:39 | Inpatient (IN) ==
[2017-08-20 16:16] LABS: Basophils % 0.4 %; Eosinophils # 0.2 K/mcL (0.0-0.6); Eosinophils % 2.9 %; Hematocrit 40.9 % (37.5-50.1); Hemoglobin 14.2 g/dL (12.9-16.9); Immature Granulocytes % 0.4 % (0-4); Lymphocytes % 11.9 %; Mean Corpuscular HGB Conc 34.7 g/dL (31.6-35.5); Mean Corpuscular Hemoglobin 30.6 pg (28.0-33.3); Mean Corpuscular Volume 88.1 fL (83.0-100.0); Mean Platelet Volume 8.4 fL (9.4-12.4); Monocytes # 0.6 K/mcL (0.0-1.3); Monocytes % 6.8 %; Neutrophils # 6.6 K/mcL (1.6-8.9); Platelet Count 213 K/mcL (140-400); Red Blood Count 4.64 M/mcL (4.19-5.50); Red Cell Distribution Width 14.5 % (11.5-14.5); Segmented Neutrophils % 77.6 %
[2017-08-20 16:21] LABS: Prothrombin Time 10.7 Seconds (9.4-12.1)
[2017-08-20 16:24] LABS: Activated Partial Thrombo Time 28.1 Seconds (26.0-36.0)
--- NOTE | 2017-08-20 16:24 | Emergency Department Note ---
Disposition Clinical Impression: Confusion TIA (transient ischemic attack) Qualifiers: Transient cerebral ischemia type: unspecified Qualified Code(s): G45.9 - Transient cerebral ischemic attack, unspecified Disposition: Admitted As Inpatient Condition: Good Referrals: Rupal Perez DO [Primary Care Provider] - Forms: ED Satisfaction Letter Time of Disposition: 17:13 Neuro HPI - General Chief Complaint: ED Neuro Symptoms/Deficit Stated Complaint: stroke like symptoms Time Seen by Provider: 08/20/17 15:46 Source: patient Mode of arrival: ambulatory Limitations: no limitations Nursing Notes Reviewed: Yes Vital Signs Reviewed: Yes - History of Present Illness HPI Narrative: Patient is a 72-year-old male with past medical history of hypertension, hyperlipidemia, COPD, diabetes, CAD. He presents with due to concern for confusion. She states that 2 weeks ago, the patient started becoming confused, was having difficulty with balancing her checkbook, his handwriting has changed and is very sloppy, he has stopped taking his medications, and he is intermittently confused at home. She denies the patient ever having any slurred speech, facial droop, focal weakness of any extremity. Patient was seen on August [address] scan of the head that was negative. It was recommended at that time that he be admitted but the patient signed out AGAINST MEDICAL ADVICE due to not wanting to stay for MRI of the head and neck. The states that he continues to have intermittent confusion at home, he was seen by primary care physician and was recommended today to come to the ER for further TIA/stroke workup. Currently, the patient denies any chest pain, shortness breath, nausea, vomiting, fevers, diarrhea, abdominal pain, neck pain , changes in vision, numbness, tearing, weakness. Denies any current confusion. - Related Data Home Medications: Home Medications Medication Instructions Recorded Confirmed Amitriptyline HCl 100 mg PO HS 08/20/17 08/20/17 Aspirin [Lo-Dose Aspirin EC] 81 mg PO HS 08/20/17 08/20/17 Docusate [Colace] 100 mg PO BID 08/20/17 08/20/17 Losartan Potassium [Cozaar] 50 mg PO DAILY 08/20/17 08/20/17 Metoprolol [Lopressor] 12.5 mg PO BID 08/20/17 08/20/17 Montelukast [Singulair] 10 mg PO DAILY 08/20/17 08/20/17 NIFEdipine [Nifedipine ER] 30 mg PO DAILY 08/20/17 08/20/17 PARoxetine HCl [Paroxetine HCl] 20 mg PO DAILY 08/20/17 08/20/17 Simvastatin [Zocor] 40 mg PO HS 08/20/17 08/20/17 Allergies/Adverse Reactions: Allergies Allergy/AdvReac Type Severity Reaction Status Date / Time atorvastatin [From Lipitor] AdvReac See Verified 08/20/17 16:33 Comments codeine AdvReac Gastrointestinal Verified 08/20/17 16:33 Upset lisinopril AdvReac Cough Verified 08/20/17 16:33 All systems ED: reviewed and negative except as stated. Constitutional: Denies: fever Cardiovascular: Denies: chest pain Respiratory: Denies: cough, dyspnea Gastrointestinal: Denies: abdominal pain, nausea, vomiting, diarrhea Genitourinary: Denies: urgency, dysuria Musculoskeletal: Denies: back pain, neck pain Integumentary: Denies: rash Neurological: Reports: confusion. Denies: headache, weakness, numbness, paresthesias Past Medical History - Past Medical History Attestation: Yes The following information was validated with the patient. Medical history: Reports: arthritis, asthma, cancer, COPD, coronary artery disease, diabetes, GERD, hyperlipidemia, hypertension, malignancy, osteoporosis , valvular heart disease, other Surgical history: Reports: angioplasty/stent, other Psychiatric history: Reports: no psych history, other - Social History Smoking Status: Former smoker Smokeless Tobacco Status: No Alcohol use: Reports: none Drug use: Reports: none Physical Exam - General General appearance: alert, in no apparent distress - Head Head exam: atraumatic, normocephalic, normal inspection - Eye Eye exam: Present: normal appearance, PERRL, EOMI - ENT ENT exam: normal exam, normal oropharynx, mucous membranes moist - Neck Neck exam: Present: normal inspection, full ROM, trachea midline - Chest Chest inspection: Present: normal inspection, symmetric chest wall rise - Respiratory Respiratory exam: Present: normal lung sounds bilaterally - Cardiovascular Cardiovascular exam: Present: regular rate, normal rhythm, normal heart sounds - Abdominal Exam Abdominal exam: Present: soft, Non-Tender. Absent: tenderness, distention, guarding, rebound, rigidity - Extremities Exam Extremities exam: Present: normal inspection, full ROM. Absent: tenderness, pedal edema - Neurological Exam Neurological exam: Present: alert, oriented X3, CN II-XII intact, other ( somewhat slow at answering questions, but answers appropriately). Absent: motor sensory deficit - Expanded Neurological Exam Patient oriented to: Present: person, place, time Speech: Present: fluid speech Cranial nerves: EOM function (II, III, IV, ): Normal, facial sensation (V): Normal, facial palsy (VII): Normal, spinal accessory function (XI): Normal, tongue deviation (XII): Normal Cerebellar function: finger to nose: Normal Motor strength - LUE: 5/5 Motor strength - RUE: 5/5 Motor strength - LLE: 5/5 Motor strength - RLE: 5/5 Sensory exam upper extremity: light touch: Normal Sensory exam lower extremity: light touch: Normal Coma Scale Eye Opening: Spontaneous Coma Scale Motor Response: Obeys Commands Coma Scale Verbal Response: Oriented Coma Scale Total: 15 - Psychiatric Psychiatric exam: Present: normal affect, normal mood - Skin Skin exam: Present: warm, dry, intact, normal color Course Course Narrative: Currently NIH of 0. No focal neurologic deficits. Patient is occasionally slow to answer questions but does answer all questions appropriately. With intermittent confusion all, there is concern for possible TIAs. I did review the CT scan from August 15 and this was negative for any acute intracranial process. Imaging with either be ultrasound of carotid and/or MRI/MRA of the head/neck would be next step for further eval, patient also needs consultation with neurology for possible TIAs. No additional head CT performed at this time due to no new changes, no new falls. Will perform basic workup of labs, chest x-ray , EKG and then admit for further care. 17:11 EKG showed no acute ST changes. Basic labs showed no major abnormalities. Troponin negative. Chest x-ray negative for any acute cardio pulmonary process. Urinalysis currently pending. Patient has been accepted to hospitalist team by Иван Arnett. Hospitalist team will follow up on urinalysis. Chest X-Ray 08/20/17 15:55 IMPRESSION: No acute cardiopulmonary process. D/ / Eladio Radford MD / Eladio Radford MD Interpreting Provider: Eladio Radford MD Vital Signs Temperature 97.7 F 08/20/17 15:41 Pulse Rate 77 08/20/17 15:41 Respiratory Rate 16 08/20/17 15:41 Blood Pressure 122/71 08/20/17 15:41 O2 Sat by Pulse Oximetry 99 08/20/17 15:41 Temperature 97.7 F 08/20/17 15:41 Pulse Rate 77 08/20/17 15:41 Respiratory Rate 16 08/20/17 15:41 Blood Pressure 122/71 08/20/17 15:41 O2 Sat by Pulse Oximetry 99 08/20/17 15:41 Oxygen Delivery Oxygen Delivery Room Air Neuro Symptoms/Deficit - MDM Narrative Medical decision making narrative: Currently NIH of 0. No focal neurologic deficits. Patient is occasionally slow to answer questions but does answer all questions appropriately. With intermittent confusion all, there is concern for possible TIAs. I did review the CT scan from August 15 and this was negative for any acute intracranial process. Imaging with either be ultrasound of carotid and/or MRI/MRA of the head/neck would be next step for further eval, patient also needs consultation with neurology for possible TIAs. No additional head CT performed at this time due to no new changes, no new falls. Will perform basic workup of labs, chest x-ray , EKG and then admit for further care. 17:11 EKG showed no acute ST changes. Basic labs showed no major abnormalities. Troponin negative. Chest x-ray negative for any acute cardio pulmonary process. Urinalysis currently pending. Patient has been accepted to hospitalist team by Иван Arnett. Hospitalist team will follow up on urinalysis. - Medical Records Medical records reviewed: Yes I reviewed the patient's medical records. - Lab Data Lab results reviewed: Yes I reviewed the patient's lab results. Result diagrams: 08/20/17 15:55 08/20/17 15:55 Lab Results 08/20/17 08/20/17 08/20/17 Range/Units 15:55 15:55 15:55 WBC 8.4 (4.3-11.1) K/mcL RBC 4.64 (4.19-5.50) M/mcL Hgb 14.2 (12.9-16.9) g/dL Hct 40.9 (37.5-50.1) % MCV 88.1 (83.0-100.0) fL MCH 30.6 (28.0-33.3) pg MCHC 34.7 (31.6-35.5) g/dL RDW 14.5 (11.5-14.5) % Plt Count 213 (140-400) K/mcL MPV 8.4 L (9.4-12.4) fL Immature Gran % 0.4 (0-4) % Seg Neutrophils % 77.6 % Lymphocytes % 11.9 % Monocytes % 6.8 % Eosinophils % 2.9 % Basophils % 0.4 % Neutrophils # 6.6 (1.6-8.9) K/mcL Lymphocytes # 1.0 (0.6-4.6) K/mcL Monocytes # 0.6 (0.0-1.3) K/mcL Eosinophils # 0.2 (0.0-0.6) K/mcL Basophils # 0.0 (0.0-0.2) K/mcL PT 10.7 (9.4-12.1) Seconds INR 1.0 APTT 28.1 (26.0-36.0) Seconds Sodium 134 L (136-145) mEq/L Potassium 3.7 (3.5-5.1) mEq/L Chloride 101 (98-107) mEq/L Carbon Dioxide 26 (23-29) mEq/L BUN 12 (8-23) mg/dL Creatinine 0.75 (0.70-1.30) mg/dL Est GFR ( Amer) > 60 (> 60) Est GFR (Non-Af Amer) > 60 (> 60) BUN/Creatinine Ratio 16 (6-26) Glucose 98 (70-105) mg/dL Calculated Osmolality 278 L (280-300) Calcium 9.3 (8.6-10.3) mg/dL Troponin I < 0.03 (< 0.04) ng/mL - Radiology Data Radiology results reviewed: Yes I reviewed the patient's radiology results. Chest X-Ray 08/20/17 15:55 IMPRESSION: No acute cardiopulmonary process. D/ / Eladio Radford MD / Eladio Radford MD Interpreting Provider: Eladio Radford MD - EKG Data EKG attestation: Yes I reviewed and interpreted this EKG. EKG results narrative: 08/20/2017 at 15:52. Normal sinus rhythm. Rate 71. WI 164. QRS 83. QTC 423. Normal axis. No acute ST elevation or depression. NIH Stroke Scale - Level of Consciousness LOC: Alert - LOC Questions LOC Questions: Answers both correctly - LOC Commands LOC Commands: Performs both correctly - Best Gaze Best Gaze: Normal - Visual Visual: No visual loss - Facial Palsy Facial Palsy: Normal - Motor Arms Motor Arm-Left: No drift for 10 seconds Motor Arm-Right: No drift for 10 seconds - Motor Legs Motor Leg-Left: No drift for 5 seconds Motor Leg-Right: No drift for 5 seconds - Limb Ataxia Limb Ataxia: Absent of affected limb too weak to perform exam - Sensory Sensory: Normal - Best Language Best Language: No aphasia - Dysarthria Dysarthria: Normal - Extinction and Inattention Extinction and Inattention: Normal - NIHSS Total Score NIHSS Total Score: 0 TPA Checklist - LKW: 3-4.5 hrs Add. Warnings/Precautions Patient/family understanding: The patient/family members have been counseled and understood the risk, benefit , and alternatives of treatment. S.B.Charo - S.B.AMarquis Situation: Demographics, MOA Background: Presenting Complaint, Relevant PMH, Meds, & Allergies Assessment: Vital Signs, Course and respsone to treatment, Exam Concerns, Patient/Family Expectation, Pertinant Lab Results Recommendation: Barrier(s) to disposition, Recommendation based on pending studies, treatments, or consults S.B.AMarquis Report Given to: Иван Evans Repor Time: 17:13
[2017-08-20 16:33] LABS: Troponin I < 0.03 ng/mL (< 0.04)
[2017-08-20 16:35] LABS: BUN/Creatinine Ratio 16 (6-26); Blood Urea Nitrogen 12 mg/dL (8-23); Calcium 9.3 mg/dL (8.6-10.3); Carbon Dioxide 26 mEq/L (23-29); Chloride 101 mEq/L (98-107); Glucose 98 mg/dL (70-105); Osmolality,Calculated 278 (280-300); Potassium 3.7 mEq/L (3.5-5.1); Sodium 134 mEq/L (136-145); eGFR For African Americans > 60 (> 60); eGFR For Non-African Americans > 60 (> 60)
--- NOTE | 2017-08-20 16:48 | Emergency Department Note ---
Disposition Clinical Impression: Confusion TIA (transient ischemic attack) Qualifiers: Transient cerebral ischemia type: unspecified Qualified Code(s): G45.9 - Transient cerebral ischemic attack, unspecified Disposition: Admitted As Inpatient Condition: Good Referrals: Rupal Perez DO [Primary Care Provider] - Forms: ED Satisfaction Letter General Adult HPI - General Chief complaint: ED Neuro Symptoms/Deficit Stated complaint: stroke like symptoms Time Seen by Provider: 08/20/17 15:46 Source: patient Mode of arrival: ambulatory Limitations: no limitations - History of Present Illness Pain Scale: 0 - Related Data Home Medications Medication Instructions Recorded Confirmed Amitriptyline HCl 100 mg PO HS 08/20/17 08/20/17 Aspirin [Lo-Dose Aspirin EC] 81 mg PO HS 08/20/17 08/20/17 Docusate [Colace] 100 mg PO BID 08/20/17 08/20/17 Losartan Potassium [Cozaar] 50 mg PO DAILY 08/20/17 08/20/17 Metoprolol [Lopressor] 12.5 mg PO BID 08/20/17 08/20/17 Montelukast [Singulair] 10 mg PO DAILY 08/20/17 08/20/17 NIFEdipine [Nifedipine ER] 30 mg PO DAILY 08/20/17 08/20/17 PARoxetine HCl [Paroxetine HCl] 20 mg PO DAILY 08/20/17 08/20/17 Simvastatin [Zocor] 40 mg PO HS 08/20/17 08/20/17 Allergies Allergy/AdvReac Type Severity Reaction Status Date / Time atorvastatin [From Lipitor] AdvReac See Verified 08/20/17 16:33 Comments codeine AdvReac Gastrointestinal Verified 08/20/17 16:33 Upset lisinopril AdvReac Cough Verified 08/20/17 16:33 Constitutional: Denies: fever Cardiovascular: Denies: chest pain Respiratory: Denies: cough, dyspnea Gastrointestinal: Denies: abdominal pain, nausea, vomiting, diarrhea Genitourinary: Denies: urgency, dysuria Musculoskeletal: Denies: back pain, neck pain Integumentary: Denies: rash Neurological: Reports: confusion. Denies: headache, weakness, numbness, paresthesias Past Medical History - Past Medical History Medical history: Reports: arthritis, asthma, cancer, COPD, coronary artery disease, diabetes, GERD, hyperlipidemia, hypertension, malignancy, osteoporosis , valvular heart disease, other Surgical history: Reports: angioplasty/stent, other Psychiatric history: Reports: no psych history, other - Social History Smoking Status: Former smoker Smokeless Tobacco Status: No Alcohol use: Reports: none Drug use: Reports: none Physical Exam - General Limitations: no limitations General appearance: alert, in no apparent distress Course Vital Signs Temperature 97.7 F 08/20/17 15:41 Pulse Rate 77 08/20/17 15:41 Respiratory Rate 16 08/20/17 15:41 Blood Pressure 122/71 08/20/17 15:41 O2 Sat by Pulse Oximetry 99 08/20/17 15:41 Temperature 97.7 F 08/20/17 15:41 Pulse Rate 77 08/20/17 15:41 Respiratory Rate 16 08/20/17 15:41 Blood Pressure 122/71 08/20/17 15:41 O2 Sat by Pulse Oximetry 99 08/20/17 15:41 Oxygen Delivery Oxygen Delivery Room Air Medical Decision Making - Lab Data Result diagrams: 08/20/17 15:55 08/20/17 15:55 Lab Results 08/20/17 08/20/17 08/20/17 Range/Units 15:55 15:55 15:55 WBC 8.4 (4.3-11.1) K/mcL RBC 4.64 (4.19-5.50) M/mcL Hgb 14.2 (12.9-16.9) g/dL Hct 40.9 (37.5-50.1) % MCV 88.1 (83.0-100.0) fL MCH 30.6 (28.0-33.3) pg MCHC 34.7 (31.6-35.5) g/dL RDW 14.5 (11.5-14.5) % Plt Count 213 (140-400) K/mcL MPV 8.4 L (9.4-12.4) fL Immature Gran % 0.4 (0-4) % Seg Neutrophils % 77.6 % Lymphocytes % 11.9 % Monocytes % 6.8 % Eosinophils % 2.9 % Basophils % 0.4 % Neutrophils # 6.6 (1.6-8.9) K/mcL Lymphocytes # 1.0 (0.6-4.6) K/mcL Monocytes # 0.6 (0.0-1.3) K/mcL Eosinophils # 0.2 (0.0-0.6) K/mcL Basophils # 0.0 (0.0-0.2) K/mcL PT 10.7 (9.4-12.1) Seconds INR 1.0 APTT 28.1 (26.0-36.0) Seconds Sodium 134 L (136-145) mEq/L Potassium 3.7 (3.5-5.1) mEq/L Chloride 101 (98-107) mEq/L Carbon Dioxide 26 (23-29) mEq/L BUN 12 (8-23) mg/dL Creatinine 0.75 (0.70-1.30) mg/dL Est GFR ( Amer) > 60 (> 60) Est GFR (Non-Af Amer) > 60 (> 60) BUN/Creatinine Ratio 16 (6-26) Glucose 98 (70-105) mg/dL Calculated Osmolality 278 L (280-300) Calcium 9.3 (8.6-10.3) mg/dL Troponin I < 0.03 (< 0.04) ng/mL Attestation Statement - Attestation Attestation: I examined this patient and my medical decision-making was reviewed with the Resident Physician. I agree with the documented findings, disposition and treatment plan as described except to the extent set forth below. 72 year old male presents to the ED wiht significant other with referral from his PCP for admission today for TIA r/o CVa. Salvage Engineering Technician at bedside states that he has been becoming more forgetful and his handwritin gin his checkbook has become increasingly more illegable like chicken scratch. He has beeen experencing more non descript neuro symtppms and had a HCT on august 15 that was benign. We will conitnue with searching for an organic source for his physical exmainationand then admit to medicine for TIA r/o CVA, this has been goingon for 2 weeks.
[2017-08-20 17:24] LABS: Bilirubin,Urine Negative (Negative); Blood,Urine Negative (Negative); Clarity,Urine Clear (Clear); Color,Urine Yellow (Yellow); Glucose,Urine (UA) Normal (Normal); Ketones,Urine Negative (Negative); Leukocyte Esterase,Urine Negative (Negative); Nitrite,Urine Negative (Negative); PH,Urine 6.5 pH Units (5.0-8.0); Protein,Urine Negative (Neg-Trace); Specific Gravity,Urine 1.012 (1.010-1.025); Urobilinogen,Urine Normal (Normal)
[2017-08-20] MEDS ORDERED: Naloxone 0.4 MG/ML INJ IVP PRN (18:04)
[2017-08-20] MEDS ORDERED: 0.9 % Sodium Chloride 1,000 ML IVC SCH (18:15)
--- NOTE | 2017-08-20 18:31 | Internal Med History&Physical ---
Date of Encounter: 08/20/17 Time of Encounter: 18:31 Internal Medicine - H&P: HPI Chief complaint: TIA Admitted From: Emergency Dept Plans for Post Hospital Care: Home History of present illness: Mr. Silvestre is a 72 year old male who is a background history of a hypertension, hyperlipidemia, diabetes mellitus, coronary disease, COPD, valvular heart disease, previously treated for brain malignancy. Patient was evaluated by primary care provider and noted that patient has a significant worsening in terms of the coordination/mentation. Primary care provider recommended patient to contact [facility] where he was treated for his brain malignancy. Patient's contacted [facility] and she was told that it will take at least 4-5 days to get the MRI done and followed by the appointment with oncology. patient and patient's came to emergency room for further evaluation. Patient denies chest pain, nausea, vomiting, abdominal pain, dizziness and diarrhea. Workup in the emergency room: Patient was evaluated in the emergency room. Baseline labs are drawn. Admission recommended. Reason for admission: TIA to rule out CVA./Recurrence of the malignancy. Family history: Noncontributory. Past Med Surg Social Fam HX - Past Medical History Medical history: arthritis, asthma, cancer, COPD, coronary artery disease, diabetes, GERD, hyperlipidemia, hypertension, malignancy, osteoporosis, valvular heart disease, other Psychiatric history: no psych history, other - Past Surgical History Surgical History: angioplasty/stent, other - Social History Smoking Status: Former smoker Smokeless Tobacco Status: No Alcohol use: none Drug use: none - Family History Father Hx Family Cardiac Disorders: No Hx Family Respiratory Disorders: Yes Hx Family Cancer: Yes Hx Family Medical Disorders: Yes Brother Living Status: Hx Family Cardiac Disorders: Yes (CT) Hx Family Neurologic Disorders: No Internal Medicine - H&P: Meds Amitriptyline HCl 100 mg PO HS 08/20/17 [History] Aspirin [Lo-Dose Aspirin EC] 81 mg PO HS 08/20/17 [History] Docusate [Colace] 100 mg PO BID 08/20/17 [History] Losartan Potassium [Cozaar] 50 mg PO DAILY 08/20/17 [History] Metoprolol [Lopressor] 12.5 mg PO BID 08/20/17 [History] Montelukast [Singulair] 10 mg PO DAILY 08/20/17 [History] NIFEdipine [Nifedipine ER] 30 mg PO DAILY 08/20/17 [History] PARoxetine HCl [Paroxetine HCl] 20 mg PO DAILY 08/20/17 [History] Simvastatin [Zocor] 40 mg PO HS 08/20/17 [History] 3 Allergy/AdvReac Type Severity Reaction Status Date / Time atorvastatin [From Lipitor] AdvReac See Verified 08/20/17 16:33 Comments codeine AdvReac Gastrointestinal Verified 08/20/17 16:33 Upset lisinopril AdvReac Cough Verified 08/20/17 16:33 All Systems PM: A 10-system review of systems was performed and is negative for pertinent findings except as documented above in the HPI. - Constitutional Constitutional: no chills, no fever(s), no night sweats - EENT Eyes: no change in vision, no discharge, no pain, no photophobia Ears: no ear discharge, no ear pain, no tinnitus Nose, mouth and throat: no dysphagia, no nasal discharge, no neck pain, no sore throat - Cardiovascular Cardiovascular ROS IM: no chest pain, no diaphoresis, no dyspnea, no lightheadedness, no palpitations, no syncope - Respiratory Respiratory: no cough, no dyspnea, no wheezing, no excessive phlegm production - Gastrointestinal Gastrointestinal: no abdominal pain, no diarrhea, no hematemesis, no hematochezia, no melena, no nausea, no vomiting - Musculoskeletal Musculoskeletal ROS IM: no numbness, no tingling - Integumentary Integumentary IM: no rash, no unusual bruising - Neurological Neurological ROS: confusion, focal weakness, numbness, no convulsions, no tingling, no tremor(s) - Hematologic/Lymphatic Hematologic/Lymphatic: no easy bruising - Constitutional Vitals: Temp Pulse Resp BP Pulse Ox 97.6 F 73 16 166/88 98 08/20/17 18:00 08/20/17 18:00 08/20/17 18:00 08/20/17 18:00 08/20/17 18:00 General appearance: Present: A&O X 3, pleasant, no acute distress, answers questions appropriately - Head Head exam: Present: atraumatic, normocephalic - Eye Eye exam: Present: PERRL, conjuntiva pink, sclera anicteric Pupils: Present: PERRL - Neck Neck exam general surgery: Present: supple, trachea midline. Absent: lymphadenopathy - Respiratory Respiratory exam: Present: CTAB. Absent: accessory muscle use, rales, rhonchi, wheezes - Cardiovascular Cardiovascular exam: Present: RRR, +S1, +S2. Absent: diastolic murmur, gallop, rubs, systolic murmur - GI/Abdominal GI/Abdominal exam: Present: normal bowel sounds, soft, no peritoneal signs. Absent: distended, tenderness - Extremities Exam Extremities exam: Present: warm, radial pulses palpable and symmetrical. Absent : calf tenderness, cyanotic, pedal edema - Neurological Exam Neurological exam: Present: CN II-XII intact, oriented X3, no focal deficits. Absent: pronater drift, facial droop, speech deficit - Skin Skin exam: Present: dry, intact Internal Med - H&P Results - Labs CBC & Chem 7: 08/20/17 15:55 08/20/17 15:55 - Assessment and plan (1) TIA (transient ischemic attack) Current Visit: Yes Status: Resolved Assessment and plan: Patient's symptoms are likely secondary to TIA. Plan: Admit as inpatient. Aspirin/statin area PT/OT/speech therapy evaluation. Nothing by mouth for now. IV fluids. MRI of the brain. I examined this patient in the emergency department room #1. Patient's is at bedside. Plan of care explained to patient and his . The verbalize understanding. Qualifiers: Transient cerebral ischemia type: other Qualified Code(s): G45.8 - Other transient cerebral ischemic attacks and related syndromes (2) History of brain cancer Current Visit: Yes Status: Chronic Assessment and plan: Patient is a history of a brain cancer. We will get MRI done during this auscultation. If the MRI shows recurrence/worsening of the brain cancer. Please transfer patient to [facility] as per patient's request. (3) HTN (hypertension) Current Visit: Yes Status: Chronic Assessment and plan: Patient does have hypertension. We will resume home medication. Close monitoring of the blood pressure will benefit during this admission. Qualifiers: Hypertension type: essential hypertension Qualified Code(s): I10 - Essential (primary) hypertension (4) CAD (coronary artery disease), [place] coronary artery Current Visit: Yes Status: Chronic Assessment and plan: Patient is a coronary artery disease. patient does not have any active chest pain. We will monitor patient closely. Resume home medication. Qualifiers: [place] vs. transplanted heart: [place] heart Associated angina: without angina Qualified Code(s): I25.10 - Atherosclerotic heart disease of [place] coronary artery without angina pectoris (5) Type 2 diabetes mellitus Current Visit: Yes Status: Chronic Assessment and plan: patient does have type 2 diabetes mellitus We will resume home medication. We will monitor blood sugar very closely. Qualifiers: Diabetes mellitus skilled nursing insulin use: without intermission coordinator use Diabetes mellitus complication status: with unspecified complications Qualified Code(s) : E11.8 - Type 2 diabetes mellitus with unspecified complications (6) DVT prophylaxis Current Visit: Yes Status: Acute Assessment and plan: SCD Medical decision making: This patient has a moderate to severe risk of worsening in spite of being on appropriate medications because of underlying malignancy. - Time Spent With Patient Total time spent is greater than 50% in coordination of care (as documented) at patient's floor/unit and/or counseling patient:
[2017-08-20] MEDS ORDERED: Aspirin Enteric Coated 81 MG Tablet PO SCH (21:00)
[2017-08-21 01:15] LABS: Hemoglobin 13.2 g/dL (12.9-16.9); Mean Corpuscular HGB Conc 34.7 g/dL (31.6-35.5); Mean Corpuscular Hemoglobin 30.1 pg (28.0-33.3); Mean Corpuscular Volume 86.8 fL (83.0-100.0); Mean Platelet Volume 8.2 fL (9.4-12.4); Platelet Count 184 K/mcL (140-400); Red Blood Count 4.38 M/mcL (4.19-5.50); Red Cell Distribution Width 14.3 % (11.5-14.5)
[2017-08-21 01:34] LABS: Alanine Aminotransferase 10 Units/L (7-52); Albumin 3.7 g/dL (3.5-5.7); Albumin/Globulin Ratio 1.6 (1.1-2.2); Alkaline Phosphatase 53 Units/L (34-104); Aspartate Amino Transferase 9 Units/L (13-39); BUN/Creatinine Ratio 13 (6-26); Bilirubin,Total 0.5 mg/dL (0.3-1.0); Blood Urea Nitrogen 10 mg/dL (8-23); Calcium 9.1 mg/dL (8.6-10.3); Carbon Dioxide 28 mEq/L (23-29); Chloride 102 mEq/L (98-107); Chol/HDL Ratio 4.6 (0-4.9); Cholesterol 129 mg/dL (< 200); Globulin 2.3 g/dL (2.4-3.5); Glucose 143 mg/dL (70-105); HDL Cholesterol 28 mg/dL (40-59); LDL Cholesterol,Calculated 77 mg/dL (0-99); Osmolality,Calculated 282 (280-300); Phosphorous 2.4 mg/dL (2.7-4.5); Potassium 3.4 mEq/L (3.5-5.1); Sodium 135 mEq/L (136-145); Triglycerides 121 mg/dL (< 150); eGFR For African Americans > 60 (> 60); eGFR For Non-African Americans > 60 (> 60)
[2017-08-21 02:04] LABS: Activated Partial Thrombo Time 28.1 Seconds (26.0-36.0); Prothrombin Time 10.6 Seconds (9.4-12.1)
[2017-08-21] MEDS ORDERED: Gadolinium Contrast Agent (WT Based) IV PRN (07:45)
[2017-08-21] MEDS ORDERED: NIFEdipine XL (24 HR) 30 MG TAB.ER.24 PO SCH (09:00)
[2017-08-21 11:19] VITALS: BP 145/83
--- NOTE | 2017-08-21 12:15 | Discharge Summary ---
<Ramiro Huffman - Last Filed: 08/21/17 12:29> - NOTES TO OUTPATIENT PROVIDER Notes to Outpatient Provider: Patient presented from his doctor's office due to concerns of worened mental status. According to his , he is doing better than he was previously because he had started taking his medications again. He received an MRI that was negative for CVA or recurrence of his brain cancer. He seemed to be further improved and without continued findings, he is safe for discharge with follow up with his neurologist at [facility]. Date of Encounter: 08/21/17 Time of Encounter: 10:15 - Discharge Diagnosis (1) History of brain cancer Priority: Primary Status: Chronic (2) HTN (hypertension) Priority: Primary Status: Chronic Qualifiers: Hypertension type: essential hypertension Qualified Code(s): I10 - Essential (primary) hypertension (3) TIA (transient ischemic attack) Priority: Primary Status: Resolved Qualifiers: Transient cerebral ischemia type: other Qualified Code(s): G45.8 - Other transient cerebral ischemic attacks and related syndromes (4) CAD (coronary artery disease), [place] coronary artery Priority: Primary Status: Chronic Qualifiers: [place] vs. transplanted heart: [place] heart Associated angina: without angina Qualified Code(s): I25.10 - Atherosclerotic heart disease of [place] coronary artery without angina pectoris (5) Type 2 diabetes mellitus Priority: Primary Status: Chronic Qualifiers: Diabetes mellitus machine long goods helper insulin use: without detention use Diabetes mellitus complication status: with unspecified complications Qualified Code(s) : E11.8 - Type 2 diabetes mellitus with unspecified complications (6) DVT prophylaxis Priority: Secondary Status: Resolved Hospital course: Mr. Silvestre is a 72 year old male with prior medical history of COPD, CAD, diabetes, and brain cancer who presents to [facility] on 08/20/17 from his doctor's office with concerns of worsening mentation. According to his , he had actually been doing better over the last few days as he has started taking his medications. Apparently, 2 weeks ago he stopped taking his medications and during that time the patient began having worsened mentation that began to improve with restarting his medications. With his history of brain cancer and prior craniotomy, there was concern for recurrence of his cancer or TIA/CVA. He underwent a a brain MRI (with/without contrast) but did not demonstrate acute CVA nor did it demonstrate recurrence of his brain cancer. Patient appears to be slowly improving and is safe/stable for discharge with continuation of his home medications and close follow-up with his neurologist at [facility]. - Time Spent with Patient Total time spent providing and/or coordinating discharge services: - Discharge Medications Home Medications: Amitriptyline HCl 100 mg PO HS 08/20/17 [History] Aspirin [Lo-Dose Aspirin EC] 81 mg PO HS 08/20/17 [History] Docusate [Colace] 100 mg PO BID 08/20/17 [History] Losartan Potassium [Cozaar] 50 mg PO DAILY 08/20/17 [History] Metoprolol [Lopressor] 12.5 mg PO BID 08/20/17 [History] Montelukast [Singulair] 10 mg PO DAILY 08/20/17 [History] NIFEdipine [Nifedipine ER] 30 mg PO DAILY 08/20/17 [History] PARoxetine HCl [Paroxetine HCl] 20 mg PO DAILY 08/20/17 [History] Simvastatin [Zocor] 40 mg PO HS 08/20/17 [History] Allergies/Adverse Reactions: 3 Allergy/AdvReac Type Severity Reaction Status Date / Time atorvastatin [From Lipitor] AdvReac See Verified 08/20/17 16:33 Comments codeine AdvReac Gastrointestinal Verified 08/20/17 16:33 Upset lisinopril AdvReac Cough Verified 08/20/17 16:33 Date of admission: 08/20/17 18:36 Primary care physician: Rupal Perez DO Discharging clinician: Ramiro Huffman Anticipated date of discharge: 08/21/17 - Constitutional Vitals: Temp Pulse Resp BP Pulse Ox 97.5 F L 67 16 145/83 97 08/21/17 11:17 08/21/17 11:17 08/21/17 11:17 08/21/17 11:17 08/21/17 11:17 General appearance: Present: A&O X 3, pleasant, no acute distress, answers questions appropriately Exam: General: Cooperative, pleasant, no acute distress, alert and oriented 3, answers questions appropriately HEENT: Normocephalic, atraumatic, Conjunctiva pink, sclera anicteric, EOMI, PERRL, oral mucosa moist Respiratory: No accessory muscle usage, clear to auscultation bilaterally, no wheezes/rhonchi/rales appreciated Cardiovascular: Regular rate and rhythm, S1 and S2 present, no murmurs/rubs/ gallops/clicks appreciated GI/abdominal: Nondistended, nontender, soft, normal bowel sounds, no peritoneal signs Extremities: No calf tenderness, no pedal edema appreciated, warm, lower extremity pulses palpable and symmetrical Neurological: Alert and oriented 3, no facial droop, no focal deficits, strength 5/5 in upper and lower extremities bilaterally, sensation intact bilaterally, cranial nerves II through XII grossly intact Skin: Dry, intact, normal color - Patient Status Disposition: Home Health Service Condition: Good Functional capacity at discharge: uses cane/walker Overall status at discharge: patient is progressing back to baseline - Discharge Instructions Follow Up With: Rupal Perez DO [Primary Care Provider] - Additional Instructions: Please return to the emergency room if development of significant headache, vision changes, worsened mentation, chest pain, or lethargy. Please continue home medications as prescribed Please follow-up with her PCP 1-2 weeks Please follow-up with her neurologist at [facility] in 1 week - Diet and Activity Activity: as per physical therapy, increase activity as tolerated Diet: diabetic diet <Gerardo Cantu - Last Filed: 08/21/17 14:02> Date of Encounter: 08/21/17 - Discharge Diagnosis (1) HTN (hypertension) Status: Chronic Qualifiers: Hypertension type: essential hypertension Qualified Code(s): I10 - Essential (primary) hypertension (2) History of brain cancer Status: Chronic (3) TIA (transient ischemic attack) Status: Resolved Qualifiers: Transient cerebral ischemia type: other Qualified Code(s): G45.8 - Other transient cerebral ischemic attacks and related syndromes (4) CAD (coronary artery disease), [place] coronary artery Status: Chronic Qualifiers: [place] vs. transplanted heart: [place] heart Associated angina: without angina Qualified Code(s): I25.10 - Atherosclerotic heart disease of [place] coronary artery without angina pectoris (5) Type 2 diabetes mellitus Status: Chronic Qualifiers: Diabetes mellitus machine long goods helper insulin use: without detention use Diabetes mellitus complication status: with unspecified complications Qualified Code(s) : E11.8 - Type 2 diabetes mellitus with unspecified complications (6) DVT prophylaxis Status: Resolved Hospital course: Mr. Silvestre is a 72 year old male - Time Spent with Patient Total time spent providing and/or coordinating discharge services: Less than 30 minutes Date of admission: 08/20/17 18:36 Primary care physician: Rupal Perez, - Constitutional Vitals: Temp Pulse Resp BP Pulse Ox 97.5 F L 67 16 145/83 97 08/21/17 11:17 08/21/17 11:17 08/21/17 11:17 08/21/17 11:17 08/21/17 11:17 - Attending Attestation I examined this patient and my medical decision-making was reviewed with the Resident Physician on 08/21/17. I agree with the documented findings, disposition and treatment plan as described except to the extent set forth below. Seen and examined at bedside with family, multiple non-specific complains , main complain being patient stopped taking his medications and refused to come out of the car to come t the hospital and they wanted to known if his Brain CA had recurred. Patient has no neuro deficits on exam, he is ambulatory and tolerating po. Labs unremarkable. BRain MRI with contrast unremarkable. Family states patient has someone around all the time and would like to be discharged home. Continue home meds.
--- NOTE | 2017-08-21 12:15 | Physician Discharge Referral ---
Home Health/Hosp Referral Info Transfer to: Home Health Provider in Charge Post Discharge: PCP - Diagnosis (1) History of brain cancer Priority: Primary Status: Chronic (2) HTN (hypertension) Priority: Primary Status: Chronic (3) TIA (transient ischemic attack) Priority: Primary Status: Resolved (4) CAD (coronary artery disease), [place] coronary artery Priority: Primary Status: Chronic (5) Type 2 diabetes mellitus Priority: Primary Status: Chronic (6) DVT prophylaxis Priority: Secondary Status: Resolved - Respiratory Orders Smoking Cessation: Smoking cessation has been advised. For more information, call the [place] Tobacco Quit Line at 2-964-IFEG-NOW. - Diet/Nutrition Diet/Nutrition Orders: No Concentrated Sweets - Activity Activity Orders: Walker Activity: List: As per PT/OT - Services Needed Following services are medically necessary services: Nursing, Physical Therapy, Occupational Therapy, Speech Therapy - Transfer Medications Home Medications: Amitriptyline HCl 100 mg PO HS 08/20/17 [History] Aspirin [Lo-Dose Aspirin EC] 81 mg PO HS 08/20/17 [History] Docusate [Colace] 100 mg PO BID 08/20/17 [History] Losartan Potassium [Cozaar] 50 mg PO DAILY 08/20/17 [History] Metoprolol [Lopressor] 12.5 mg PO BID 08/20/17 [History] Montelukast [Singulair] 10 mg PO DAILY 08/20/17 [History] NIFEdipine [Nifedipine ER] 30 mg PO DAILY 08/20/17 [History] PARoxetine HCl [Paroxetine HCl] 20 mg PO DAILY 08/20/17 [History] Simvastatin [Zocor] 40 mg PO HS 08/20/17 [History] Allergies/Adverse Reactions: 3 Allergy/AdvReac Type Severity Reaction Status Date / Time atorvastatin [From Lipitor] AdvReac See Verified 08/20/17 16:33 Comments codeine AdvReac Gastrointestinal Verified 08/20/17 16:33 Upset lisinopril AdvReac Cough Verified 08/20/17 16:33 Certification: Further, I certify that my clinical findings support that this patient is homebound (i.e. absences from home require considerable and taxing effort and are for medical reasons or yarsani services or infrequently or short duration when for other reasons) because: Homebound Reason: Patient requires assistance of a person or device to safely leave home, Leaving home requires considerable and taxing effort due to condition Attestation: My signature below is to certify that this patient is under my care and that I, or nurse practitioner, or a physician's respiratory equipment assistant working with me, has a face-to -face encounter with this patient.
--- NOTE | 2017-08-23 16:51 | Electrocardiograph Report ---
[facility] Test Date: 2017-08-20 Pat Name: Иван Silvestre Department: 102 Room: 2NE22 Gender: M [employer] Runner: Yosef : 1945 Requested By: Varinder Basilio Order Number: [id number] Reading MD: Иван Cody Measurements Intervals [place] Rate: 71 P: 45 NV: 164 QRS: 5 QRSD: 83 T: 14 QT: 400 QTc: 423 Interpretive Statements SINUS RHYTHM INTERPRETATION BASED ON A DEFAULT AGE OF 40 YEARS Electronically Signed On 08-23-2017 16:49:45 EDT by Иван Cody
== END 2017-08-21 15:35 | disposition home health service (06) | DRG 69 ==
LOC: 2NENU 15:39 → EMEROO 15:39 → 2NENU 18:00
PROVIDERS: ADMIT Internal Medicine; ATTEND Nurse Practitioner Family